=== PATIENT | female | born 1965 | race Caucasian/White ===

== ENCOUNTER 2019-09-05 11:35 | Inpatient (IN) | payer OTHER, SELFPAY ==
[2019-09-05] VITALS (7 sets, daily range): BP systolic 104–135; BP diastolic 80–95; PULSE 59–84; RESP 16–18; TEMP 36.3–36.6; O2SAT 94–100; BMI 22.2
--- NOTE | ~2019-09-05 | XR_ITS ---
XR abdomen NG/feed tube insert INDICATION: Evaluate NG tube position. TECHNIQUE: Limited KUB perform for evaluating NG tube . COMPARISON: No prior studies for comparison. FINDINGS: [NG tube tip in the stomach, side-port near the expected location of the GE junction, recom mend advancement. Visualized bowel gas pattern is unremarkable.There is residual contrast in the man al collecting systems and kidneys bilaterally. IMPRESSION: 1: [NG tube tip in the stomach, side port near the GE junction. Recommend advancement.. Reviewed, dictated and finalized at location A. ROOM TECHNICIAN IMPRESSION: 1: [NG tube tip in the stomach, side port near the GE junction. Recommend adva ncement..
--- NOTE | ~2019-09-05 | XR_ITS ---
EXAMINATION: XR abdomen NG/feed tube rechec EXAM DATE: 09/05/2019 18:46 INDICATION: Feeding tube placement. TECHNIQUE: Frontal projection(s) of the abdomen for interpretation. Comparison is made to prior exami nation from earlier same date. FINDINGS: Feeding tube has been advanced. Tip and side-port are adequate in position. Contrast withi n renal collecting system. Dilated small bowel seen on CT underappreciated on this exam. Right middle lobe granuloma. IMPRESSION: Feeding tube in position. Reviewed, dictated and finalized at location A. HASE REQUEST EDITOR IMPRESSION: Feeding tube in position.
--- NOTE | ~2019-09-05 | XR_ITS ---
EXAMINATION: XR abdomen obstructive series DATE: 09/07/2019 05:46 INDICATION: Bowel obstruction TECHNIQUE: Frontal supine and upright views of the abdomen were obtained. COMPARISON: None. FINDINGS: Nasogastric tube tip in proximal side port in the body of the stomach. Small amount of gas and small to moderate amount of stool scattered throughout the colon. Anastomotic suture line in the central pe lvis. No dilated gas-filled loops of bowel. No free intraperitoneal gas. Visualized lung bases are clear. Heart size is normal. Small amount of residual vicariously excreted contrast in the gallbladde r. IMPRESSION: 1. No free intraperitoneal gas or dilated gas-filled loops of bowel to suggest obstruction. Reviewed, dictated and finalized at location A. NESS SERVICES MANAGER
--- NOTE | ~2019-09-05 | CT_ITS ---
EXAMINATION: CT abdomen pelvis w con DATE: 09/05/2019 13:51 INDICATION: Generalized abdominal pain. TECHNIQUE: Computed tomography (CT) of the abdomen and pelvis was performed with 100 mL Omnipaque 350 intravenous contrast. Automated exposure control and iterative reconstruction technique were employe d. The dose-length product was 205.02 mGy-cm. COMPARISON: CT abdomen and pelvis 03/07/2018 FINDINGS: The visualized portions of the lung bases demonstrate a calcified right lung nodule, consis tent with old granulomatous disease. No pleural effusion. The liver, gallbladder, spleen, pancreas, a drenal glands, and kidneys are normal. There is an anastomosis in the rectum. The appendix is not vis ualized. There is dilated small bowel in left abdomen with a transition point in the left anterior ab domen. There are no pathologically enlarged lymph nodes. There is no free intraperitoneal fluid. Ther e is moderate lumbar spondylosis. IMPRESSION: 1. Small bowel obstruction. Reviewed, dictated and finalized at location B. L ENGINEER IMPRESSION: 1. Small bowel obstruction.
--- NOTE | ~2019-09-05 | XR_ITS ---
XR abdomen obstructive series 09/06/2019 08:29 Indication: Small bowel obstruction Procedure: Supine and upright views of the abdomen Comparison: 09/05/2019 Findings: NG tube in the stomach. Bowel pattern is nonobstructive. There is contrast in the gallbladd er and bladder. Surgical changes present in the pelvis. Lung bases unremarkable. Impression: 1: Nonobstructive bowel gas pattern. Reviewed, dictated and finalized at location A. IGERATOR CABINETMAKER Impression: 1: Nonobstructive bowel gas pattern.
[2019-09-05 11:51] LABS: Basophils Percent Auto 0.5 % (0.2-1.2); Eosinophils Absolute Auto 0.1 K/mm3 (0-0.3); Hematocrit 43.3 % (37.0-47.0); Hemoglobin 14.5 g/dL (12.0-15.0); Immature Granulocyte Absolute 0.01 K/mm3 (0.00-0.031); Immature Granulocyte Percent A 0.2 % (0-0.5); Lymphocytes Absolute Auto 1.28 K/mm3 (0.9-3.2); Lymphocytes Percent Auto 31.8 % (18.3-44.2); Mean Corpuscular HGB Conc 33.5 g/dl (32-36); Mean Corpuscular Hemoglobin 32.4 pg (26-34); Mean Corpuscular Volume 96.9 fl (80-100); Mean Platelet Volume 8.7 fl (7.4-10.4); Monocytes Absolute Auto 0.4 K/mm3 (0.1-0.6); Monocytes Percent Auto 9.9 % (2.6-8.5); Neutrophils Absolute Auto 2.2 K/mm3 (1.3-6.7); Neutrophils Percent Auto 55.6 % (45.5-73.1); Platelet Count Result 267 k/mm3 (150-375); Red Blood Count 4.47 M/mm3 (4.2-5.4); Red Cell Distribution Width 11.5 % (11.5-14.5)
[2019-09-05 11:58] LABS: Add Urine Microscopic? YES; Appearance Urine Clear (Clear); Bilirubin Urine Negative (Negative); Blood Urine Negative (Negative); Color Urine Yellow (Yellow); Glucose Urine UA Negative (Negative); Ketones Urine Negative (Negative); Leukocyte Esterase Ur Negative LEU/UL (Negative); Mucus Urine Rare /lpf; Nitrate Urine Negative (Negative); Protein Urine 1+ mg/dL (Negative); RBC Urine 0-2 /hpf (0-2); Specific Grav Ur 1.025 (1.001-1.035); Squamous Epithelial Cell Urine Rare /hpf (Few); Urobilinogen Urine Negative mg/dL (<2.0); WBC Urine 0-3 /hpf
[2019-09-05 12:02] LABS: Alanine Aminotransferase 22 U/L (4-35); Albumin Level 4.3 g/dL (3.5-5.1); Alkaline Phosphatase 60 U/L (38-126); Aspartate Amino Transferase 25 U/L (14-36); Bilirubin,Total 0.3 mg/dL (0.2-1.3); Blood Urea Nitrogen 12 mg/dL (7-17); Calcium 8.6 mg/dL (8.4-10.2); Carbon Dioxide 28 mmol/L (22-30); Chloride 101 mmol/L (98-107); Estimated CRCL calculation 64 ml/min; Estimated Glomerular Filt Rate > 60; Glucose 86 mg/dL (65-105); Lipase 49 U/L (23-300); Potassium 3.5 mmol/L (3.4-5.0); Sodium 137 mmol/L (137-145)
--- NOTE | 2019-09-05 12:35 | ED.ABDPAIN ---
HPI - Abdominal Pain General Chief Complaint: Abdominal Pain Stated Complaint: abd pain Time Seen by Provider: 09/05/19 12:34 Source: patient Mode of arrival: ambulatory Limitations: no limitations History of Present Illness HPI narrative: A 54 y/o female presents to the ED with c/o RUQ ABD pain since Wednesday (3 days ago). Pt also c/o diarrhea and has been having thin noodle-like stool for the past few days. Pt notes that she had surgery for diverticulitis in [address] Rodriguez at [facility]. Pt has taken Tramadol and Codeine for her pain. She reports N/V, but denies a fever. Pertinent past history: diverticulitis Onset (ago): day(s) (3) Location: RUQ Associated symptoms: nausea, vomiting and diarrhea Related Data Allergies Allergy/AdvReac Type Severity Reaction Status Date / Time Penicillins Allergy Mild Hives Verified 09/05/19 11:40 Review of Systems Review of Systems: All systems reviewed & are unremarkable except as noted in HPI and below Constitutional: Constitutional: Denies fever(s) Gastrointestinal: Gastrointestinal: Reports abdominal pain (RUQ), Reports diarrhea, Reports nausea and Reports vomiting PMFSH Past Medical History Medical History (Updated 09/05/19 @ 17:11 by Kaiden Kimble DO) Anxiety Arthritis Back pain Depression Diverticulitis Endometriosis GERD (gastroesophageal reflux disease) Hx of bipolar disorder Seizures Self-mutilation UTI (urinary tract infection) Wears glasses Surgical History Surgical History (Updated 09/05/19 @ 12:45 by oRla Suarez) H/O rotator cuff surgery History of bladder surgery History of partial colectomy Family History Family History Father Family history of coronary artery disease Social History Social History Alcohol intake: never Comments PSHx: collar bone surgery PMHx: right foot Fx with tendon and ligament damage PCP: Dr. Mendez Exam Narrative: Exam Narrative: APPEARANCE: No acute distress, nontoxic, resting in bed HEENT: Normocephalic, atraumatic, OMM RESPIRATORY: No respiratory distress, clear to auscultation bilaterally with no rhonchi wheezing or rales CARDIOVASCULAR: RRR s murmur ABDOMINAL: Soft, nondistended, diffusely tender to palpation, no rebound or MUSCULOSKELETAl: Moves all extremities. No clubbing, cyanosis or edema. NEURO: Awake and alert. Following commands, speech normal, no focal deficits SKIN:: Warm, dry. Normal Color PSYCHIATRIC: Normal affect/mood Course Course Emergency Course: Discussed with Dr. Greenwood for surgery presentation work-up. Agrees with NG tube and will consult Discussed with patient and family results of workup and diagnosis. Discussed need for admission. Patient and family understand and agree to current treatment plan Consultations Consultation #1: Discussed case with Sonja and accepted admission. Date: 09/05/19 Time: 15:53 Vital Signs Vital signs: Vital Signs Temperature 97.4 F L 09/05/19 11:36 Pulse Rate 84 09/05/19 11:36 Respiratory Rate 18 09/05/19 11:36 Blood Pressure 126/84 09/05/19 11:36 Pulse Oximetry 94 09/05/19 11:36 Temperature 97.9 F 09/05/19 16:22 Pulse Rate 59 L 09/05/19 16:22 Respiratory Rate 18 09/05/19 16:22 Blood Pressure 117/80 09/05/19 16:22 Pulse Oximetry 100 09/05/19 16:22 MDM - Abdominal Pain Lab Data Result diagrams: 09/05/19 11:42 09/05/19 11:42 Labs: Lab Results 09/05/19 09/05/19 09/05/19 Range/Units 11:42 11:42 11:47 WBC 4.0 L (4.5-10.0) K/mm3 RBC 4.47 (4.2-5.4) M/mm3 Hgb 14.5 (12.0-15.0) g/dL Hct 43.3 (37.0-47.0) % MCV 96.9 (80-100) fl MCH 32.4 (26-34) pg MCHC 33.5 (32-36) g/dl RDW 11.5 (11.5-14.5) % Plt Count 267 (150-375) k/mm3 MPV 8.7 (7.4-10.4) fl Immature Gran % (Auto) 0.2 (0-0.5) % Neut % (Auto) 55.6 (45.5-73.1) %
[2019-09-05] MEDS: ONDANSETRON INJ 4 MG/2 ML VIAL IV PUSH ×2 (13:38→21:39)
[2019-09-05] MEDS: MORPHINE SULFATE 4 MG/ML INJ IV PUSH ×4 (13:38→21:40)
[2019-09-05] MEDS: LACTATED RINGERS 1,000 ML 999 ML IV CONT (13:39)
[2019-09-05 14:47] LABS: Lactic Acid Reflex 0.7 mmol/L (0.7-2.1)
[2019-09-05] MEDS: SODIUM CHLORIDE 0.9% IV 1,000 ML 125 ML IV CONT (18:26)
--- NOTE | 2019-09-05 18:42 | ADMGEN ---
This patient, Claire Garcia, was admitted to Medical Room 249-01. Patient/family oriented to hospital policies and general routines including ID bracelet, bed and alarms, visiting hours, pain management, procedures, bathroom and other care routines, personal items, smoking policy, room service/diet, and visiting hours. Valuables list has been completed. Information on how to activate the Rapid Response Team has been discussed. Patient/Family are encouraged to report perceived risks to care and to ask questions if they do not understand what they are told or what they should do.
--- NOTE | 2019-09-05 21:58 | PM.CNGS ---
Assessment and Plan Assessment and plan (1) Small bowel obstruction: Onset Date: ~09/05/19 Code(s): K56.609 - Unspecified intestinal obstruction, unspecified as to partial versus complete obstruction Status: Acute Assessment and Plan: CT scan shows dilated fluid-filled stomach colon with several loops of left-sided small-bowel dilation with what appears to be some transitioning just the left of midline slightly below the level umbilicus. (See report). Will plan to use NG decompression and bowel rest. Will monitor with serial exams and x-rays. Have explained to the patient that at times this will resolve with conservative management and other times she will require operative intervention. She seems understand wished to proceed this manner. (2) GERD (gastroesophageal reflux disease): Onset Date: ~10/2016 Code(s): K21.9 - Gastro-esophageal reflux disease without esophagitis Status: Acute Assessment and Plan: with IV use IV proton pump inhibitor while hospitalized. (3) Depression: Code(s): F32.9 - Major depressive disorder, single episode, unspecified Status: Acute Assessment and Plan: Ask the Medicine service to provide IV substitutes for this while hospitalized. (4) Anxiety: Code(s): F41.9 - Anxiety disorder, unspecified Status: Acute Assessment and Plan: She may need IV substance medication should this become a problem while hospitalized and with NG in place. History of Present Illness Consult details Consult date: 09/05/19 Reason for consult: gallstones Requesting physician: Bal Martínez MD Narrative: A 54 y/o female presents to the ED today with c/o RUQ and mid ABD pain since Wednesday (3 days ago). Pt also c/o diarrhea and has been having thin noodle-like stool for the past few days. Pt notes that she had surgery for diverticulitis in [address] Rodriguez at [facility]. Pt has taken Tramadol and Codeine for her pain. She reports N/V, but denies a fever. patient has also taken Prilosec OTC Pepcid 20 mg both once a day office in ends of the day. She also has with her both Zofran 4 mg tablets and right gland 5 mg tablets which she has taken over the last few days periodically for nausea. Pertinent past history: diverticulitis And surgical intervention for recurrent diverticulitis done 2017. She states that was sigmoid colon that was resected. This was done at [facility] in [place]. Patient also states that she had undergo an urgent surgery at age 23 for perforation of the bowel which occurred after a pelvic laparoscopy. She apparently had multiple segments of small bowel resected at that time period both of her scars from previous surgery RN in infraumbilical midline each coming around opposite sides of the umbilicus one on the left for on the right. Other than the previous laparoscopy these were the only surgery she has had her abdomen. She is not sure whether not the took out her appendix during the time that they did the small-bowel resections at age 23. Patient presented to the emergency room and workup in the emergency room showed a white count of about 4,000. She also had a CT scan of the abdomen pelvis which showed that she had appeared to be transition zone near the left mid abdomen for a small-bowel obstruction. Her stomach was significantly dilated with fluid on CT scan. She has also had a NGT placed in the ED ER and she filled 1 full canister the suction from her NG while in the ER. She is being admitted by the hospitalist because of herl medical comorbidities including history of seizures. She will be NPO and on bowel rest and will be encouraged to ambulate to help this small-bowel obstruction released spontaneously. Review of Systems Constitutional: Constitutional: Reports no additional constitutional complaints Cardiovascular: Cardiovascular: Reports chest pain ( Mainly in the epigastrium.) Gastrointestin
[2019-09-05] MEDS: PHENOL/SOD PHENO SPRAY CHERRY (*BKC) 1 SPRAY MUCOUS MEM (22:00)
[2019-09-05] MEDS: LORAZEPAM INJ 2 MG/ML VIAL 0.5 MG IV PUSH (22:07)
[2019-09-05] MEDS: FAMOTIDINE 20 MG/2 ML VIAL IV PUSH (22:07)
[2019-09-06] MEDS: MORPHINE SULFATE 4 MG/ML INJ IV PUSH ×6 (01:03→19:57)
[2019-09-06] MEDS: SODIUM CHLORIDE 0.9% IV 1,000 ML 125 ML IV CONT ×3 (01:05→17:23)
[2019-09-06] MEDS: PHENOL/SOD PHENO SPRAY CHERRY (*BKC) 1 SPRAY MUCOUS MEM ×3 (05:06→20:01)
[2019-09-06] MEDS: ONDANSETRON INJ 4 MG/2 ML VIAL IV PUSH ×2 (05:12→19:56)
[2019-09-06 06:00] VITALS: BP 105/71; PULSE 62; RESP 16; TEMP 36.6; O2SAT 98
[2019-09-06 06:36] LABS: Basophils Percent Auto 0.2 % (0.2-1.2); Eosinophils Absolute Auto 0.1 K/mm3 (0-0.3); Eosinophils Percent Auto 2.4 % (0-4.4); Hematocrit 36.3 % (37.0-47.0); Hemoglobin 12.1 g/dL (12.0-15.0); Lymphocytes Absolute Auto 1.75 K/mm3 (0.9-3.2); Lymphocytes Percent Auto 42.2 % (18.3-44.2); Mean Corpuscular HGB Conc 33.3 g/dl (32-36); Mean Corpuscular Hemoglobin 32.6 pg (26-34); Mean Corpuscular Volume 97.8 fl (80-100); Mean Platelet Volume 9.1 fl (7.4-10.4); Monocytes Absolute Auto 0.4 K/mm3 (0.1-0.6); Monocytes Percent Auto 9.4 % (2.6-8.5); Neutrophils Absolute Auto 1.9 K/mm3 (1.3-6.7); Neutrophils Percent Auto 45.8 % (45.5-73.1); Platelet Count Result 213 k/mm3 (150-375); Red Blood Count 3.71 M/mm3 (4.2-5.4); Red Cell Distribution Width 11.6 % (11.5-14.5); White Blood Count 4.2 K/mm3 (4.5-10.0)
[2019-09-06 06:59] LABS: Blood Urea Nitrogen 7 mg/dL (7-17); Carbon Dioxide 26 mmol/L (22-30); Chloride 107 mmol/L (98-107); Estimated CRCL calculation 55 ml/min; Estimated Glomerular Filt Rate > 60; Glucose 83 mg/dL (65-105); Potassium 3.2 mmol/L (3.4-5.0); Sodium 139 mmol/L (137-145)
[2019-09-06] MEDS: LORAZEPAM INJ 2 MG/ML VIAL 0.5 MG IV PUSH ×2 (07:55→21:55)
--- NOTE | 2019-09-06 08:22 | PM.IMHP ---
H&P: HPI History of Present Illness Chief complaint: small bowel obstruction Narrative: Claire Garcia is a 54 year old female with hx of abd surgeries here for abd pain and found to have partial SBO. Patient has hx of pSBO with last episode in February 2018. She states she normally take Mg citrate with benefit. She also takes miralax prn and Reglan prn when symptomatic. On 09/02/19, patietn began to have abd cramping with diarrhea, nausea and vomiting with dry heaves. Matheson diaphoretic and with chills with the vomiting but no fevers. No melana or hematochezia. Was able to tolerate liquid diet. Stools were described as thin. Her last BM was on the day of admission just prior to coming to ER. She was taking codeine which she had left over for pain. She also takes tramadol but chronically for her arthritis. She did not try the Mag citrate. Symptoms persisted and she presented to ER for evaluation and was found to have SBO by CT. NGT placed and patient admitted for further care. Since admission, no further BMs but passing flatus and up walking in the halls. Abd pain better. Review of Systems Review of Systems: Narrative: Complains of sore throat due to the tube. She has also having headache. She does also 'worry a lot'about requiring a colostomy at some point. She also complains of weight loss about 6# since the beginning her symptoms. She complains of lymph node enlargement in the left side of her neck. They are nontender. They appear to come and go. She denies any breast lumps or bumps or nipple discharge. No recent mammogram. All systems reviewed & are unremarkable except as noted in HPI and below PMFSH Past Medical History Medical History (Updated 09/06/19 @ 08:46 by Dylan Odom MD) Anxiety With panic attacks Arthritis Back pain Depression on treatment with Seroquel. Diverticulitis Endometriosis GERD (gastroesophageal reflux disease) (~10/2016) Treated with PPI and H2 blockers Hx of bipolar disorder Related to the time she was undergoing a divorce Seizures Matheson to be alcohol withdrawal related Self-mutilation Related to the time she was going through divorce. UTI (urinary tract infection) Wears glasses Surgical History Surgical History (Updated 09/06/19 @ 08:38 by Dylan Odom MD) H/O rotator cuff surgery Right History of bladder surgery 2009 History of partial colectomy Sigmoid colon in 2017 S/P laparoscopic procedure For endometriosis in the 1980s complicated by bowel perforation requiring surgical repair S/P tendon repair History of left tendon repair after foot fracture Family History Family History (Updated 09/05/19 @ 18:47 by Sammy Dela Cruz RN) Father Family history of coronary artery disease Mother Lung cancer Bladder cancer Sibling Hypertension Social History Social History (Updated 09/06/19 @ 08:39 by Dylan Odom MD) Social History: History of cocaine use. Last used cocaine about 2 years ago. No history of IV drug use. She declines HIV and hepatitis testing. She drinks 6 alcoholic drinks per week. She smokes marijuana regularly. She lives alone but her boyfriend stays with her frequently. She is lifelong nonsmoker. She has 2 sons. She is full code. Her son Chun would be the individual making medical decisions for her if she is unable. Smoking status: Never smoker Alcohol intake: current Drinks per week: 3 Substance use: current Substance use type: marijuana Gender identity (if verbalized by the patient): Female Spiritual care concerns: Yes (L[employer]-Day) Agree to blood products: Yes Meds Home Medications and Allergies Home Medications Medication Instructions Recorded Confirmed Type alprazolam [Xanax] 1 mg PO TID PRN 09/05/19 09/05/19 History esomeprazole magnesium 40 mg PO DAILY 09/05/19 09/05/19 History famotidine 20 mg PO DAILY PRN 09/05/19 09/05/19 History metoclopramide HCl [Reglan] 10 mg PO Q6H PRN 09/05/19 1
[2019-09-06] MEDS: FAMOTIDINE 20 MG/2 ML VIAL IV PUSH ×2 (11:44→19:57)
[2019-09-06 14:00] VITALS: BP 105/69; PULSE 69; RESP 16; TEMP 37.1; O2SAT 98
--- NOTE | 2019-09-06 14:24 | PM.PNGS ---
Progress Note: A&P Assessment and Plan (1) Small bowel obstruction: Onset Date: ~09/05/19 Code(s): K56.609 - Unspecified intestinal obstruction, unspecified as to partial versus complete obstruction Status: Acute Assessment and Plan: Patient seems to be clinically improving. Abdominal x-ray this morning shows nonobstructive bowel gas pattern. Will initiate an NG tube clamping trial and give a dose of milk of magnesia through the NG prior to clamping. Will repeat abdominal films tomorrow. Encouraged walking the halls while clamped if tolerated. (2) GERD (gastroesophageal reflux disease): Onset Date: ~10/2016 Code(s): K21.9 - Gastro-esophageal reflux disease without esophagitis Status: Acute (3) Depression: Code(s): F32.9 - Major depressive disorder, single episode, unspecified Status: Acute Assessment and Plan: (4) Anxiety: Code(s): F41.9 - Anxiety disorder, unspecified Status: Acute Additional Plan Discussed plan of care with Dr. Greenwood. Subjective Subjective Date/Time Seen: 09/06/19 14:00 Patient reports: no new complaints, feels better, pain is less, flatus and no bowel movement Interval history: Patient seen and examined. Reports lots of flatus today. Only 1 episode of abdominal pain earlier today but no abdominal pain at this time. She reports being clamped for a short period of time to walk in the halls and did become slightly nauseous, but no vomiting. No BM. Denies feeling bloated. No other complaints at this time. Review of Systems Review of Systems: All systems reviewed & are unremarkable except as noted in HPI and below Exam Const: General: no acute distress, alert and awake Orientation/consciousness: oriented x3 GI: Inspection: normal to inspection and non-distended GI Palp: Yes soft, Yes tender (Left-sided tender), No guarding and No rebound tenderness Auscultation: normal bowel sounds Rectal Exam: deferred Skin: General skin exam: normal color Neuro: General: no focal motor deficits Speech: normal speech Extrem: General: normal to inspection and no calf tenderness Psych: Appearance: grossly normal Mental Status: mental status grossly normal Attitude: cooperative Objective Data Vital Signs Vital Signs: Vital Signs - 24 hr 09/05/19 15:24 09/05/19 16:22 09/05/19 17:50 Temperature 36.6 C Pulse Rate 80 59 L 63 Respiratory Rate 18 18 18 Blood Pressure 135/95 H 117/80 118/83 Pulse Oximetry 95 100 97 09/05/19 21:54 09/05/19 22:00 09/06/19 06:00 Temperature 36.4 C 36.6 C Pulse Rate 63 60 62 Respiratory Rate 18 16 16 Blood Pressure 104/81 105/71 Pulse Oximetry 97 98 98 Intake/Output Intake/Output: Intake & Output 09/03/19 09/04/19 09/05/19 09/06/19 23:59 23:59 23:59 23:59 Intake Total 1000 2000 Output Total 1010 Balance 1000 990 Meds/Results Medications: Active Medications Generic Name Dose Route Start Last Admin Trade Name Freq PRN Reason Stop Dose Admin Benzocaine 1 lozenge 09/05/19 22:49 Chloraseptic Lozenge PO PRN PRN Sore Throat Famotidine 20 mg 09/05/19 21:00 09/06/19 11:44 Pepcid Iv IV PUSH 20 mg Q12HR BREE Administration Sodium Chloride 1,000 mls @ 125 mls/hr 09/05/19 15:55 09/06/19 09:07 Normal Saline Iv IV CONT 125 mls/hr .Q8H BREE Administration Lorazepam 0.5 mg 09/05/19 21:40 09/06/19 07:55 Ativan IV PUSH 0.5 mg Q6H PRN Administration Anxiety Morphine Sulfate 4 mg 09/05/19 15:53 09/06/19 13:02 Morphine Sulfate Inj IV PUSH 4 mg Q2H PRN Administration Pain Rated 7-10 Ondansetron HCl 4 mg 09/05/19 15:53 09/06/19 05:12 Zofran Inj IV PUSH 4 mg Q4H PRN Administration Nausea Phenol 1 spray 09/05/19 22:10 09/06/19 11:44 Chloraseptic [place] MUCOUS MEM 1 spray PRN PRN Administration Sore Throat Radiology Results: ITS Impressions Abdomen/Pelvis CT
[2019-09-06] MEDS: MAGNESIUM HYDROXIDE SUSP 30 ML UDC PO (15:28)
--- NOTE | 2019-09-06 15:32 | PC.NURSE ---
Patient is currently on a clamp schedule ordered by the ARTS MANAGER, patient drank about 240 mls of a red slushy brought in by family
[2019-09-06] MEDS: BENZOCAINE/MENTHOL (*BKC) 18 EA LOZENGE 1 LOZENGE PO (20:01)
[2019-09-06 20:10] VITALS: PULSE 69; RESP 16; O2SAT 98
[2019-09-06 21:42] VITALS: BP 114/69; PULSE 64; RESP 16; TEMP 37.1; O2SAT 97
[2019-09-07] MEDS: ONDANSETRON INJ 4 MG/2 ML VIAL IV PUSH ×3 (00:07→10:07)
[2019-09-07] MEDS: MORPHINE SULFATE 4 MG/ML INJ IV PUSH ×3 (00:07→08:04)
[2019-09-07] MEDS: SODIUM CHLORIDE 0.9% IV 1,000 ML 125 ML IV CONT ×2 (00:08→08:00)
[2019-09-07] MEDS: PHENOL/SOD PHENO SPRAY CHERRY (*BKC) 1 SPRAY MUCOUS MEM ×2 (00:08→05:28)
[2019-09-07 05:52] VITALS: BP 98/75; PULSE 57; RESP 18; TEMP 36.8; O2SAT 98
[2019-09-07 05:57] LABS: Basophils Percent Auto 0.3 % (0.2-1.2); Eosinophils Absolute Auto 0.1 K/mm3 (0-0.3); Eosinophils Percent Auto 2.2 % (0-4.4); Hemoglobin 10.6 g/dL (12.0-15.0); Immature Granulocyte Absolute 0.02 K/mm3 (0.00-0.031); Immature Granulocyte Percent A 0.5 % (0-0.5); Lymphocytes Absolute Auto 1.25 K/mm3 (0.9-3.2); Lymphocytes Percent Auto 34.2 % (18.3-44.2); Mean Corpuscular HGB Conc 33.1 g/dl (32-36); Mean Corpuscular Hemoglobin 32.5 pg (26-34); Mean Corpuscular Volume 98.2 fl (80-100); Mean Platelet Volume 8.8 fl (7.4-10.4); Monocytes Absolute Auto 0.3 K/mm3 (0.1-0.6); Monocytes Percent Auto 7.7 % (2.6-8.5); Neutrophils Percent Auto 55.1 % (45.5-73.1); Platelet Count Result 144 k/mm3 (150-375); Red Blood Count 3.26 M/mm3 (4.2-5.4); Red Cell Distribution Width 11.5 % (11.5-14.5); White Blood Count 3.7 K/mm3 (4.5-10.0)
[2019-09-07 06:06] LABS: Blood Urea Nitrogen 2 mg/dL (7-17); Calcium 8.1 mg/dL (8.4-10.2); Carbon Dioxide 28 mmol/L (22-30); Chloride 104 mmol/L (98-107); Estimated CRCL calculation 72 ml/min; Estimated Glomerular Filt Rate > 60; Glucose 87 mg/dL (65-105); Potassium 3.4 mmol/L (3.4-5.0); Sodium 137 mmol/L (137-145)
[2019-09-07 07:10] LABS: Folic Acid 14.5 ng/mL (2.76->20)
[2019-09-07] MEDS: CYANOCOBALAMIN INJ 1,000 MCG/ML VIAL 1000 MCG IM (08:05)
[2019-09-07] MEDS: FAMOTIDINE 20 MG/2 ML VIAL IV PUSH (08:12)
[2019-09-07] MEDS: KCL 20 MEQ/SW 100 ML 100 ML 50 MEQ IVPB (09:56)
[2019-09-07] MEDS: LORAZEPAM INJ 2 MG/ML VIAL 0.5 MG IV PUSH (10:04)
--- NOTE | 2019-09-07 10:25 | PM.PNGS ---
Progress Note: A&P Assessment and Plan (1) Small bowel obstruction: Onset Date: ~09/05/19 Code(s): K56.609 - Unspecified intestinal obstruction, unspecified as to partial versus complete obstruction Status: Acute Assessment and Plan: Patient continues to clinically improve. Abdominal x-ray this morning shows nonobstructive bowel gas pattern. Will remove NG tube today and start clear liquids. Encouraged patient to walk the halls. (2) GERD (gastroesophageal reflux disease): Onset Date: ~10/2016 Code(s): K21.9 - Gastro-esophageal reflux disease without esophagitis Status: Acute (3) Depression: Code(s): F32.9 - Major depressive disorder, single episode, unspecified Status: Acute Assessment and Plan: (4) Anxiety: Code(s): F41.9 - Anxiety disorder, unspecified Status: Acute Additional Plan Discussed plan of care with Dr. Greenwood. Subjective Subjective Date/Time Seen: 09/07/19 10:25 Patient reports: no new complaints, feels better, flatus and bowel movement Interval history: Patient seen and examined. Reports feeling better today. Her primary complaint is feeling like she is having a lot of reflux. She also reports some soreness in her upper abdomen she believes from the vomiting and discomfort in her throat from the NG tube. Feels less bloated. No nausea. Reports two bowel movements overnight. No other complaints at this time. Review of Systems Review of Systems: All systems reviewed & are unremarkable except as noted in HPI and below Exam Const: General: cooperative, no acute distress, alert and awake GI: Inspection: normal to inspection and non-distended GI Palp: Yes soft, Yes tender (left-sided tenderness improved today) and No guarding Auscultation: normal bowel sounds Skin: General skin exam: normal color and no rashes or lesions noted Neuro: General: oriented x3 and no focal motor deficits Extrem: General: full ROM and no calf tenderness Psych: Mental Status: mental status grossly normal Attitude: cooperative Objective Data Vital Signs Vital Signs: Vital Signs - 24 hr 09/06/19 14:00 09/06/19 20:10 09/06/19 21:42 Temperature 37.1 C 37.1 C Pulse Rate 69 69 64 Respiratory Rate 16 16 16 Blood Pressure 105/69 114/69 Pulse Oximetry 98 98 97 09/07/19 05:52 Temperature 36.8 C Pulse Rate 57 L Respiratory Rate 18 Blood Pressure 98/75 L Pulse Oximetry 98 Intake/Output Intake/Output: Intake & Output 09/04/19 09/05/19 09/06/19 09/07/19 23:59 23:59 23:59 23:59 Intake Total 1000 3760 2000 Output Total 2210 500 Balance 1000 1550 1500 Meds/Results Medications: Active Medications Generic Name Dose Route Start Last Admin Trade Name Freq PRN Reason Stop Dose Admin Benzocaine 1 lozenge 09/05/19 22:49 09/06/19 20:01 Chloraseptic Lozenge PO 1 lozenge PRN PRN Administration Sore Throat Cyanocobalamin 1,000 mcg 09/07/19 09:00 09/07/19 08:05 Vitamin B-12 Inj IM 1,000 mcg Th@0900 BREE Administration Famotidine 20 mg 09/05/19 21:00 09/07/19 08:12 Pepcid Iv IV PUSH 20 mg Q12HR BREE Administration Sodium Chloride 1,000 mls @ 125 mls/hr 09/05/19 15:55 09/07/19 08:00 Normal Saline Iv IV CONT 125 mls/hr .Q8H BREE Administration Lorazepam 0.5 mg 09/05/19 21:40 09/07/19 10:04 Ativan IV PUSH 0.5 mg Q6H PRN Administration Anxiety Morphine Sulfate 4 mg 09/05/19 15:53 09/07/19 08:04 Morphine Sulfate Inj IV PUSH 4 mg Q2H PRN Administration Pain Rated 7-10 Ondansetron HCl 4 mg 09/05/19 15:53 09/07/19 10:07 Zofran Inj IV PUSH 4 mg Q4H PRN Administration Nausea Phenol 1 spray 09/05/19 22:10 09/07/19 05:28 Chloraseptic [place] MUCOUS MEM 1 spray PRN PRN Administration Sore Throat Radiology Results: ITS Impressions Abdomen/Pelvis CT 09/05/19 13:57 IMPRESSION: 1. Small bowel obstruction. Abdomen X-Ra
--- NOTE | 2019-09-07 13:09 | PM.IMPN ---
Progress Note: A&P Assessment and Plan (1) Small bowel obstruction: Onset Date: ~09/05/19 Code(s): K56.609 - Unspecified intestinal obstruction, unspecified as to partial versus complete obstruction Status: Acute (2) GERD (gastroesophageal reflux disease): Onset Date: ~10/2016 Code(s): K21.9 - Gastro-esophageal reflux disease without esophagitis Status: Acute (3) Anxiety: Code(s): F41.9 - Anxiety disorder, unspecified Status: Acute (4) Leukopenia: Code(s): D72.819 - Decreased white blood cell count, unspecified Status: Acute (5) Hypokalemia: Code(s): E87.6 - Hypokalemia Status: Acute Additional Plan 09/06/19 -- Patient admitted to [address] [place] [address]. General surgery is been consulted. Patient now having flatus and exam is relatively benign. Repeat KUB is ordered for today with results pending. Further determination once his results are known. Continue to encourage the patient to be up walking in the halls. Home medications on hold. Ativan available as needed for anxiety. Will continue the Pepcid for her acid reflux symptoms. The potassium has already been replaced. Will repeat potassium level in the morning with magnesium level. Continue IV fluids. Recommend patient monitor the left side lymph nodes at this time since they are small and mobile. All questions were answered. SCDs for DVT prophylaxis. Appreciate general surgery input. 09/07/19 -- Sx improving. She feels better overall. Diet to be advanced. Home once able to tolerate diet. Resume home meds. Encourage ambulation. Subjective Interval history: 54yo female here for pSBO. NGT out this morning. Nausea before NGT out but better now. No vomiting. BM x2. Tolerating popsicles and ice chips. Exam Narrative: Exam Narrative: Gen - NARD lying semi-recumbent in bed HEENT - NC/AT, mmm Neck -supple. [place] posterior cervical adenopathy that are small and mobile. Chest - CTA bilaterally, nml RR. Normal respiratory rate CV - RRR S1/S2. Abd - Soft, NT/ND, Positive BS. Ext - No pedal edema Psych - Nml mood and affect Skin - Warm and dry Objective Data Vital Signs Vital Signs: Vital Signs - 24 hr 09/06/19 14:00 09/06/19 20:10 09/06/19 21:42 Temperature 98.7 F 98.8 F Pulse Rate 69 69 64 Respiratory Rate 16 16 16 Blood Pressure 105/69 114/69 Pulse Oximetry 98 98 97 09/07/19 05:52 Temperature 98.2 F Pulse Rate 57 L Respiratory Rate 18 Blood Pressure 98/75 L Pulse Oximetry 98 Intake/Output Intake/Output: Intake & Output 09/04/19 09/05/19 09/06/19 09/07/19 23:59 23:59 23:59 23:59 Intake Total 1000 3760 2000 Output Total 2210 500 Balance 1000 1550 1500 Meds/Results Medications: Active Medications Generic Name Dose Route Start Last Admin Trade Name Freq PRN Reason Stop Dose Admin Acetaminophen 500 mg 09/07/19 11:10 Tylenol Tablet PO Q6H PRN Mild Pain (1-3) or Fever Hydrocodone Bitart/Acetaminophen 1 tab 09/07/19 11:10 [place] 5-325 Mg PO Q6H PRN Pain Rated 4-6 Hydrocodone Bitart/Acetaminophen 1 tab 09/07/19 11:10 [place] 7.5-325 Mg PO Q6H PRN Pain Rated 7-10 Benzocaine 1 lozenge 09/05/19 22:49 09/06/19 20:01 Chloraseptic Lozenge PO 1 lozenge PRN PRN Administration Sore Throat Cyanocobalamin 1,000 mcg 09/07/19 09:00 09/07/19 08:05 Vitamin B-12 Inj IM 1,000 mcg Th@0900 BREE Administration Famotidine 20 mg 09/05/19 21:00 09/07/19 08:12 Pepcid Iv IV PUSH 20 mg Q12HR BREE Administration Sodium Chloride 1,000 mls @ 90 mls/hr 09/05/19 15:55 09/07/19 11:55 Normal Saline Iv IV CONT 90 mls/hr .Q11H7M BREE Infusion Lorazepam 0.5 mg 09/05/19 21:40 09/07/19 10:04 Ativan IV PUSH 0.5 mg Q6H PRN Administration Anxiety Ondansetron HCl 4 mg 09/05/19 15:53 09/07/19 10:07 Zofran Inj IV PUSH 4 mg Q4H PRN Administration Nausea Phenol 1
[2019-09-07 14:00] VITALS: BP 111/74; PULSE 60; RESP 16; TEMP 36.6; O2SAT 100
[2019-09-07] MEDS: ALPRAZOLAM 0.5 MG TABLET 1 MG PO ×2 (17:48→21:57)
[2019-09-07] MEDS: SODIUM CHLORIDE 0.9% IV 1,000 ML 90 ML IV CONT (17:58)
[2019-09-07 21:10] VITALS: BP 100/63; PULSE 61; RESP 16; TEMP 36.3; O2SAT 100
[2019-09-07] MEDS: QUEtiapine FUMARATE 25 MG TABLET 50 MG PO (21:54)
[2019-09-07] MEDS: ACETAMINOPHEN 500 MG TABLET PO (21:57)
[2019-09-08 05:57] VITALS: BP 93/61; PULSE 62; RESP 12; TEMP 36.3; O2SAT 100
[2019-09-08 06:20] LABS: Hematocrit 33.7 % (37.0-47.0); Hemoglobin 11.2 g/dL (12.0-15.0); Mean Corpuscular HGB Conc 33.2 g/dl (32-36); Mean Corpuscular Hemoglobin 32.2 pg (26-34); Mean Corpuscular Volume 96.8 fl (80-100); Mean Platelet Volume 9.3 fl (7.4-10.4); Platelet Count Result 180 k/mm3 (150-375); Red Blood Count 3.48 M/mm3 (4.2-5.4); Red Cell Distribution Width 11.4 % (11.5-14.5); White Blood Count 3.5 K/mm3 (4.5-10.0)
[2019-09-08 06:33] LABS: Calcium 7.9 mg/dL (8.4-10.2); Carbon Dioxide 28 mmol/L (22-30); Chloride 106 mmol/L (98-107); Estimated CRCL calculation 63 ml/min; Estimated Glomerular Filt Rate > 60; Glucose 86 mg/dL (65-105); Potassium 3.3 mmol/L (3.4-5.0); Sodium 139 mmol/L (137-145)
[2019-09-08 07:50] LABS: Blood Urea Nitrogen < 2 mg/dL (7-17)
--- NOTE | 2019-09-08 07:57 | PM.PNGS ---
Progress Note: A&P Assessment and Plan (1) Small bowel obstruction: Onset Date: ~09/05/19 Code(s): K56.609 - Unspecified intestinal obstruction, unspecified as to partial versus complete obstruction Status: Acute Assessment and Plan: Patient clinically improving. Advanced to full liquids today. Slowly advance to soft diet. Encouraged ambulation in the halls Patient may benefit from bowel stimulation going home (2) GERD (gastroesophageal reflux disease): Onset Date: ~10/2016 Code(s): K21.9 - Gastro-esophageal reflux disease without esophagitis Status: Acute (3) Depression: Code(s): F32.9 - Major depressive disorder, single episode, unspecified Status: Acute Assessment and Plan: (4) Anxiety: Code(s): F41.9 - Anxiety disorder, unspecified Status: Acute Subjective Subjective Date/Time Seen: 09/08/19 07:57 Patient reports: feels better, tolerating liquids well, flatus and bowel movement Interval history: The patient seen and examined. Reports having one episode of nausea yesterday around 5 pm that resolved. She did also have a bowel movement last night. Denies any abdominal pain, nausea, vomiting, or bloating this morning. No other complaints. Review of Systems Review of Systems: All systems reviewed & are unremarkable except as noted in HPI and below Exam Const: General: no acute distress and other (sleeping when entering the room and tired this morning) GI: Inspection: normal to inspection and non-distended GI Palp: Yes soft, Yes tender (LLQ still but improved), No guarding and No rebound tenderness Auscultation: normal bowel sounds Neuro: General: no focal motor deficits Psych: Attitude: cooperative Objective Data Vital Signs Vital Signs: Vital Signs - 24 hr 09/07/19 14:00 09/07/19 21:10 09/08/19 05:57 Temperature 36.6 C 36.3 C L 36.3 C L Pulse Rate 60 61 62 Respiratory Rate 16 16 12 Blood Pressure 111/74 100/63 93/61 L Pulse Oximetry 100 100 100 Intake/Output Intake/Output: Intake & Output 09/05/19 09/06/19 09/07/19 09/08/19 23:59 23:59 23:59 23:59 Intake Total 1000 3760 5060 900 Output Total 2210 2700 Balance 1000 1550 2360 900 Meds/Results Medications: Active Medications Generic Name Dose Route Start Last Admin Trade Name Freq PRN Reason Stop Dose Admin Acetaminophen 500 mg 09/07/19 11:10 09/07/19 21:57 Tylenol Tablet PO 500 mg Q6H PRN Administration Mild Pain (1-3) or Fever Hydrocodone Bitart/Acetaminophen 1 tab 09/07/19 11:10 [place] 5-325 Mg PO Q6H PRN Pain Rated 4-6 Hydrocodone Bitart/Acetaminophen 1 tab 09/07/19 11:10 09/07/19 17:59 [place] 7.5-325 Mg PO 1 tab Q6H PRN Administration Pain Rated 7-10 Alprazolam 1 mg 09/07/19 13:16 09/07/19 21:57 Xanax PO 1 mg TID PRN Administration Anxiety Benzocaine 1 lozenge 09/05/19 22:49 09/06/19 20:01 Chloraseptic Lozenge PO 1 lozenge PRN PRN Administration Sore Throat Cyanocobalamin 1,000 mcg 09/07/19 09:00 09/07/19 08:05 Vitamin B-12 Inj IM 1,000 mcg Th@0900 BREE Administration Famotidine 20 mg 09/07/19 13:16 Pepcid PO DAILY PRN Acid Reflux Potassium Chloride 500 mls @ 125 mls/hr 09/08/19 07:30 Kcl 40 Meq/D5w 500 Ml Peripheral IVPB 09/08/19 11:29 ONCE ONE Metoclopramide HCl 10 mg 09/07/19 14:09 Reglan PO Q6H PRN For nausea if Zofran unhelpful Ondansetron HCl 4 mg 09/07/19 13:16 Zofran Odt PO PRN PRN Nausea Pantoprazole Sodium 40 mg 09/08/19 09:00 Protonix PO QAM BREE Phenol 1 spray 09/05/19 22:10 09/07/19 05:28 Chloraseptic [place] MUCOUS MEM 1 spray PRN PRN Administration Sore Throat Quetiapine Fumarate 50 mg 09/07/19 21:00 09/07/19 21:54 Seroquel PO 50 mg HS BREE Administration Radiology Results: ITS Impressions Abdomen/Pelvis CT 09/05/19 13:57 I
[2019-09-08] MEDS: POTASSIUM CHLORIDE 20 MEQ TABLET 40 MEQ PO (08:59)
[2019-09-08] MEDS: PANTOPRAZOLE 40 MG TABLET PO (09:00)
[2019-09-08] MEDS: ALPRAZOLAM 0.5 MG TABLET 1 MG PO ×2 (09:09→20:48)
--- NOTE | 2019-09-08 11:07 | PM.IMPN ---
Progress Note: A&P Assessment and Plan (1) Small bowel obstruction: Onset Date: ~09/05/19 Code(s): K56.609 - Unspecified intestinal obstruction, unspecified as to partial versus complete obstruction Status: Acute (2) GERD (gastroesophageal reflux disease): Onset Date: ~10/2016 Code(s): K21.9 - Gastro-esophageal reflux disease without esophagitis Status: Acute (3) Anxiety: Code(s): F41.9 - Anxiety disorder, unspecified Status: Acute (4) Leukopenia: Code(s): D72.819 - Decreased white blood cell count, unspecified Status: Acute (5) Hypokalemia: Code(s): E87.6 - Hypokalemia Status: Acute Additional Plan 09/06/19 -- Patient admitted to [address] [place] [address]. General surgery is been consulted. Patient now having flatus and exam is relatively benign. Repeat KUB is ordered for today with results pending. Further determination once his results are known. Continue to encourage the patient to be up walking in the halls. Home medications on hold. Ativan available as needed for anxiety. Will continue the Pepcid for her acid reflux symptoms. The potassium has already been replaced. Will repeat potassium level in the morning with magnesium level. Continue IV fluids. Recommend patient monitor the left side lymph nodes at this time since they are small and mobile. All questions were answered. SCDs for DVT prophylaxis. Appreciate general surgery input. 09/07/19 -- Sx improving. She feels better overall. Diet to be advanced. Home once able to tolerate diet. Resume home meds. Encourage ambulation. B12 was low so replacement started. May be the etiology of her low WBC. 09/08/19 -- Hgb better today. Potassium still low and replaced again. Mg 2.0 yesterday. Diet advanced to full liquid. Dulcolax supp x 1 and add Miralax. Encouraged ambulation. Subjective Interval history: 54yo female here for pSBO. No CP or SOB. Slight nausea this morning. No vomiting. Having increasing abd pain mostly LLQ. No BM yesterday or today. Ambulating in halls. Exam Narrative: Exam Narrative: Gen - NARD sitting up in bed Chest - CTA bilat, nml RR CV - RRR S1/S2. Abd - soft, mildly protuberant but not tympanitic. No guarding and minimal nonfocal tenderness Ext - No pedal edema Psych - Nml mood and affect Skin - Warm and dry Objective Data Vital Signs Vital Signs: Vital Signs - 24 hr 09/07/19 14:00 09/07/19 21:10 09/08/19 05:57 Temperature 97.9 F 97.4 F L 97.3 F L Pulse Rate 60 61 62 Respiratory Rate 16 16 12 Blood Pressure 111/74 100/63 93/61 L Pulse Oximetry 100 100 100 Intake/Output Intake/Output: Intake & Output 09/05/19 09/06/19 09/07/19 09/08/19 23:59 23:59 23:59 23:59 Intake Total 1000 3760 5060 900 Output Total 2210 2700 Balance 1000 1550 2360 900 Meds/Results Medications: Active Medications Generic Name Dose Route Start Last Admin Trade Name Freq PRN Reason Stop Dose Admin Acetaminophen 500 mg 09/07/19 11:10 09/07/19 21:57 Tylenol Tablet PO 500 mg Q6H PRN Administration Mild Pain (1-3) or Fever Hydrocodone Bitart/Acetaminophen 1 tab 09/07/19 11:10 [place] 5-325 Mg PO Q6H PRN Pain Rated 4-6 Hydrocodone Bitart/Acetaminophen 1 tab 09/07/19 11:10 09/08/19 09:09 [place] 7.5-325 Mg PO 1 tab Q6H PRN Administration Pain Rated 7-10 Alprazolam 1 mg 09/07/19 13:16 09/08/19 09:09 Xanax PO 1 mg TID PRN Administration Anxiety Benzocaine 1 lozenge 09/05/19 22:49 09/06/19 20:01 Chloraseptic Lozenge PO 1 lozenge PRN PRN Administration Sore Throat Cyanocobalamin 1,000 mcg 09/07/19 09:00 09/07/19 08:05 Vitamin B-12 Inj IM 1,000 mcg Th@0900 BREE Administration Famotidine 20 mg 09/07/19 13:16 Pepcid PO DAILY PRN Acid Reflux Metoclopramide HCl 10 mg 09/07/19 14:09 Reglan PO Q6H PRN For nausea if Zofran unhelpful Ondansetron HCl
[2019-09-08] MEDS: BISACODYL 10 MG SUPPOSITORY RECTAL (11:51)
[2019-09-08] MEDS: POLYETHYLENE GLYCOL 3350 17 GM POWD.PACK PO (11:51)
[2019-09-08] MEDS: FAMOTIDINE 20 MG TABLET PO (13:54)
[2019-09-08 14:00] VITALS: BP 110/69; PULSE 68; RESP 20; TEMP 36.4; O2SAT 100
[2019-09-08] MEDS: QUEtiapine FUMARATE 25 MG TABLET 50 MG PO (20:47)
[2019-09-08 22:00] VITALS: BP 122/58; PULSE 90; RESP 24; TEMP 36.3; O2SAT 97
[2019-09-09 05:06] VITALS: BP 108/62; PULSE 53; RESP 12; TEMP 36.1; O2SAT 95
[2019-09-09 05:48] LABS: Blood Urea Nitrogen 4 mg/dL (7-17); Calcium 7.8 mg/dL (8.4-10.2); Carbon Dioxide 29 mmol/L (22-30); Chloride 104 mmol/L (98-107); Estimated CRCL calculation 72 ml/min; Estimated Glomerular Filt Rate > 60; Glucose 97 mg/dL (65-105); Magnesium 2.1 mg/dL (1.6-2.3); Potassium 3.4 mmol/L (3.4-5.0); Sodium 139 mmol/L (137-145)
[2019-09-09] MEDS: POTASSIUM CHLORIDE 20 MEQ TABLET 40 MEQ PO (07:33)
[2019-09-09] MEDS: ONDANSETRON HCL ODT 4 MG TABLET PO (07:33)
[2019-09-09] MEDS: POLYETHYLENE GLYCOL 3350 17 GM POWD.PACK PO (09:24)
[2019-09-09] MEDS: PANTOPRAZOLE 40 MG TABLET PO (09:24)
[2019-09-09] MEDS: ALPRAZOLAM 0.5 MG TABLET 1 MG PO (09:35)
--- NOTE | 2019-09-09 11:41 | PM.DS ---
DS: Diagnosis Admitting Diagnosis Admitting Diagnosis: Unspecified intestinal obstruction, unspecified as to partial versus complete obstruction Discharge Diagnosis (1) Small bowel obstruction: Onset Date: ~09/05/19 Code(s): K56.609 - Unspecified intestinal obstruction, unspecified as to partial versus complete obstruction Status: Acute (2) GERD (gastroesophageal reflux disease): Onset Date: ~10/2016 Code(s): K21.9 - Gastro-esophageal reflux disease without esophagitis Status: Acute (3) Anxiety: Code(s): F41.9 - Anxiety disorder, unspecified Status: Acute (4) Leukopenia: Code(s): D72.819 - Decreased white blood cell count, unspecified Status: Acute (5) Hypokalemia: Code(s): E87.6 - Hypokalemia Status: Acute DS: Summary Hospital Course Reason for hospitalization: 54yo female here for partial SBO. Please see H&P for details. Hospital Course: 09/06/19 -- Patient admitted to [address] [place] [address]. General surgery is been consulted. Patient now having flatus and exam is relatively benign. Repeat KUB is ordered for today with results pending. Further determination once his results are known. Continue to encourage the patient to be up walking in the halls. Home medications on hold. Ativan available as needed for anxiety. Will continue the Pepcid for her acid reflux symptoms. The potassium has already been replaced. Will repeat potassium level in the morning with magnesium level. Continue IV fluids. Recommend patient monitor the left side lymph nodes at this time since they are small and mobile. All questions were answered. SCDs for DVT prophylaxis. Appreciate general surgery input. 09/07/19 -- Sx improving. She feels better overall. Diet to be advanced. Home once able to tolerate diet. Resume home meds. Encourage ambulation. B12 was low so replacement started. May be the etiology of her low WBC. 09/08/19 -- Hgb better today. Potassium still low and replaced again. Mg 2.0 yesterday. Diet advanced to full liquid. Dulcolax supp x 1 and add Miralax. Encouraged ambulation. 09/09/19 -- Patient feels well today. Multiple bowel movements yesterday. Tolerating oral intake. No significant abdominal pain. Feels ready for discharge Status at Discharge Functional status at discharge: independent ambulation Overall status at discharge: patient is back to baseline Time Spent with Patient Time attestation: Total time spent providing and/or coordinating discharge services: 32 minutes Specific discharge activities: Discussed at length techniques to manage this at home if symptoms recur and are mild. Also encouraged adhering to a low residue diet Exam Narrative: Exam Narrative: Gen - NARD Chest - CTA bilat, nml RR CV - RRR S1/S2 Abd - soft, NT/ND, +BS Ext - No pedal edema Psych - Nml mood and affect Skin - Warm and dry DS: Data Data Completed and Pending Labs on day of discharge: Labs from last 24 hours 09/09/19 05:06 Sodium 139 Potassium 3.4 Chloride 104 Carbon Dioxide 29 BUN 4 L Creatinine 0.60 L Estim Creat Clear Calc 72 Estimated GFR > 60 Glucose 97 Calcium 7.8 L Magnesium 2.1 Discharge Plan Discharge Attending physician on discharge: Dylan Odom Consulting providers: Sushil Greenwood Discharging Clinician: Dylan Odom Anticipated Discharge Date/Time: 09/09/19 11:46 Patient Disposition: Home, Self-Care Activity: unlimited Diet: low fiber and other - see discharge instructions Discharge Instructions: Followed low-fiber diet for 1 week. Then a feeling well okay to gradually increase fiber in the diet. Take 30 cc of milk a magnesia x1 if you go 24 hours without a bowel movement. Call the office if you continue to have abdominal cramping problems and would like to pursue a outpatient small-bowel follow-through study. Patient Instructions: Bowel Obstruction (DC), Antibiotic Form Stand
--- NOTE | 2019-09-09 13:48 | PC.NURSE ---
Discharged home per self and POV. Left with discharge paperwork and personal affects. Awake, alert, and oriented times four, no complaints. PCT escorted out to POV in wheelchair at 1345.
== END 2019-09-09 13:45 | disposition home or self-care (01) | DRG 247 ==
LOC: ANHED 12:44 → ANH2MED 16:46
PROVIDERS: Admitting Provider Internal Medicine; Emergency Provider Emergency Medicine; PCP Internal Medicine; Visit Provider Internal Medicine
DX: K56.609 Unspecified intestinal obstruction, unspecified as to partial versus complete obstruction (principal); F41.8 Other specified anxiety disorders; E87.6 Hypokalemia; K21.9 Gastro-esophageal reflux disease without esophagitis
CPT/HCPCS: 36415; 74018; 74019; 74177; 80048; 80053; 81001; 81025; 82607; 82746; 83605; 83690; 83735; 84443; 85025; 85027; 96361; 96365; 96366; 96374; 96375; 96376; 99285; A9270; G0378; G0379; J2060; J2270; J2405; J3420; J3480; J7030; J7120; Q9967

== ENCOUNTER 2022-12-30 16:57 | Emergency (ER) | payer MEDICARE, MEDICAID, SELFPAY ==
--- NOTE | ~2022-12-30 | XR_ITS ---
EXAM: XR shoulder RT min 2V DATE: 12/30/2022 17:51 HISTORY: pain / swelling after fall, HX OF FXed CLAVIC[place] . COMPARISON: 01/01/2015. FINDINGS: Normal mineralization. Old distal right clavicular fracture versus postsurgical change and chronic AC joint widening. No acute fracture or dislocation. No lytic or blastic lesion. Moderate gl enohumeral osteoarthritis. No erosion or periosteal change. Soft tissues within normal limits. IMPRESSION: No acute osseous finding in the right shoulder. Reviewed, dictated and finalized at location K.
--- NOTE | ~2022-12-30 | CT_ITS ---
EXAMINATION: CT cervical spine wo con DATE: 12/30/2022 17:50 INDICATION: midline neck pain after fall TECHNIQUE: Computed tomography (CT) of the cervical spine was performed without intravenous contrast. Automated exposure control and iterative reconstruction technique were employed. The dose-length pro duct was 117.96 mGy-cm. COMPARISON: 10/06/2019. FINDINGS: Vertebral Body Alignment: Intact. Stable minimal grade 1 anterolisthesis at C4-5. Craniocervical and atlantoaxial alignment: Moderate degenerative change. Alignment intact. Osseous structures/fracture: No evidence of a lytic or blastic process in the visualized spine. No e vidence of acute fracture. . Cervical soft tissues: The paraspinal soft tissues planes are maintained. Stable nodular pleural scar ring in the right medial apex. Degenerative changes: Degenerative changes, without severe neural foraminal or central canal narrowin g. IMPRESSION: No acute fracture or traumatic malalignment in the cervical spine. Reviewed, dictated and finalized at location K.
--- NOTE | ~2022-12-30 | XR_ITS ---
EXAM: XR forearm RT 2V DATE: 12/30/2022 18:27 HISTORY: pain and swelling after fall . COMPARISON: 01/13/2014. FINDINGS: Normal mineralization. No fracture or dislocation. No lytic or blastic lesion. Joint space s and physes are maintained. No erosion or periosteal change. Soft tissues within normal limits. IMPRESSION: No acute osseous finding in the right forearm. Reviewed, dictated and finalized at location K.
[2022-12-30 17:02] VITALS: BP 134/99; PULSE 71; RESP 16; TEMP 36.9; O2SAT 96
--- NOTE | 2022-12-30 17:29 | ED.GENADULT ---
HPI - General Adult General Chief complaint: Unspecified Stated complaint: agitated, ETOH Time Seen by Provider: 12/30/22 17:14 History of Present Illness HPI narrative: Patient is a 57-year-old female here here in police custody after an altercation. History obtained largely from nursing staff and police given patient's mental state. Apparently patient was pulled over today and she was physically aggressive towards the police officers, leading her to be tased in the right flank. Patient adamantly denies being aggressive towards police officers states that I am not like that . She is obviously intoxicated and is not making much sense with her history apart from what I can gather she was driving her elderly sick dog to the vet this to be put down. Does admit to alcohol use today but denies other drug use. She is complaining of right forearm pain and right shoulder pain. Related Data Home Medications Medication Instructions Recorded Confirmed alprazolam 1 mg tablet (Xanax) 1 mg PO TID PRN Anxiety 09/05/19 09/05/19 esomeprazole magnesium 40 mg 40 mg PO DAILY 09/05/19 09/05/19 capsule,delayed release famotidine 20 mg tablet 20 mg PO DAILY PRN Acid Reflux 09/05/19 09/05/19 metoclopramide HCl 10 mg tablet 10 mg PO Q6H PRN Nausea 09/05/19 09/05/19 (Reglan) ondansetron HCl 4 mg tablet 4 mg PO PRN PRN Nausea 09/05/19 09/05/19 (Zofran) quetiapine 50 mg tablet 50 mg PO HS 09/05/19 09/05/19 Allergies Allergy/AdvReac Type Severity Reaction Status Date / Time Penicillins Allergy Mild Hives Verified 09/05/19 11:40 Review of Systems Review of Systems: Gen.: Denies fevers or chills Eyes: Denies eye pain or visual change ENT: Denies congestion Respiratory: Denies shortness of breath or cough CV: Denies chest pain or palpitations GI: Denies abdominal pain nausea, emesis or diarrhea denies burning, urgency, frequency or hematuria Musculoskeletal: Reports right shoulder pain and neck pain. Neuro: Denies numbness, tingling, weakness or focal weakness Skin: Denies rash Except as documented, all other systems reviewed and negative PMFSH Past Medical History Medical History Anxiety With panic attacks Arthritis Back pain Depression on treatment with Seroquel. Diverticulitis Endometriosis GERD (gastroesophageal reflux disease) (~10/2016) Treated with PPI and H2 blockers Hx of bipolar disorder Related to the time she was undergoing a divorce Seizures [place] to be alcohol withdrawal related Self-mutilation Related to the time she was going through divorce. UTI (urinary tract infection) Wears glasses Surgical History Surgical History H/O rotator cuff surgery Right History of bladder surgery 2009 History of partial colectomy Sigmoid colon in 2016 S/P laparoscopic procedure For endometriosis in the complicated by bowel perforation requiring surgical repair S/P tendon repair History of left tendon repair after foot fracture Family History Family History (Updated 09/05/19 @ 18:47 by Sammy Dela Cruz RN) Father Family history of coronary artery disease Mother Lung cancer Bladder cancer Sibling Hypertension Social History Social History (Updated 09/06/19 @ 08:39 by Dylan Odom MD) Social History: History of cocaine use. Last used cocaine about 2 years ago. No history of IV drug use. She declines HIV and hepatitis testing. She drinks 6 alcoholic drinks per week. She smokes marijuana regularly. She lives alone but her boyfriend stays with her frequently. She is lifelong nonsmoker. She has 2 sons. She is full code. Her son Chun would be the individual making medical decisions for her if she is unable. Smoking status: Never smoker Alcohol intake: current Drinks per week: 3 Substance use: current Substance use type: marijuana Gender identity (if verbal
--- NOTE | 2022-12-30 17:47 | PC.NURSE ---
Pt to CT scan via stretcher at this time.
[2022-12-30] MEDS: MELOXICAM 7.5 MG TABLET PO (18:02)
[2022-12-30 18:52] VITALS: BP 132/88; PULSE 87; RESP 17; O2SAT 96
== END 2022-12-30 18:54 | disposition home or self-care (01) ==
LOC: ANHED 18:26
PROVIDERS: Emergency Provider Physician Assistant; PCP Internal Medicine
DX: M25.511 Pain in right shoulder (principal); S50.11XA Contusion of right forearm, initial encounter; M19.90 Unspecified osteoarthritis, unspecified site; N80.9 Endometriosis, unspecified; K21.9 Gastro-esophageal reflux disease without esophagitis; F41.0 Panic disorder [episodic paroxysmal anxiety]; F32.A Depression, unspecified; Z87.440 Personal history of urinary (tract) infections; Z90.49 Acquired absence of other specified parts of digestive tract; Y35.833A Legal intervention involving a conducted energy device, suspect injured, initial encounter
CPT/HCPCS: 72125; 73030; 73090; 99284; A9270

== ENCOUNTER 2023-12-28 08:11 | Emergency (ER) | payer OTHER, SELFPAY ==
--- NOTE | ~2023-12-28 | CT_ITS ---
CT of the Abdomen and Pelvis: Indication: Abdominal pain Technique: 2.5 mm axial scans were obtained through the abdomen and pelvis following intravenous adm inistration of 100 cc of Omnipaque 350. Dose reduction technique was used on this scan by utilizing a utomated exposure control and iterative reconstruction technique. The dose-length product (DLP) was 2 76.52 mGy-cm. Findings: Scans through the lung bases are unremarkable. The liver, spleen, pancreas, gallbladder, adrenals and kidneys are within normal limits. No evidence of aortic aneurysm. No lymphadenopathy. No bowel obstruction evident. Rectosigmoid anastomosis noted. There is wall thickening of multiple sm all bowel loops. No abscess or free air evident. Images through the pelvis were performed. Urinary bladder unremarkable. No pelvic mass seen. Small am ount of pelvic ascites. Impression: Wall thickening of multiple small bowel loops is most consistent with nonspecific infectious/inflamma tory enteritis. Small amount of ascites. Rectosigmoid anastomosis. Reviewed, dictated and finalized at [facility]. Impression: Wall thickening of multiple small bowel loops is most consistent with nonspecif ic infectious/inflammatory enteritis. Small amount of ascites. Rectosigmoid anastomosis.
[2023-12-28 08:20] VITALS: BP 135/76; PULSE 75; RESP 16; TEMP 36.3; O2SAT 100
--- NOTE | 2023-12-28 08:28 | ED.ABDPAIN ---
HPI - Abdominal Pain General Chief Complaint: Abdominal Pain Stated Complaint: abd pain, hx of abdominal surgeries Time Seen by Provider: 12/28/23 08:27 Source: patient and family Mode of arrival: ambulatory Limitations: no limitations History of Present Illness HPI narrative: 4 years old white female came to the emergency room with her significant other by private car complaining of diffuse abdominal pain for the last 3 days associated with nausea, vomited maximum 3 x 3 days ago. Patient report poor p.o. intake, patient thought maybe she have constipation and has been taking milk of magnesium lately. She denies any fever or chills. History of colon resection secondary to diverticulitis, diverticulitis, she smokes marijuana daily. She denies radiation of pain, aggravating or relieving factors. Related Data Home Medications Medication Instructions Recorded Confirmed alprazolam 1 mg tablet (Xanax) 1 mg PO TID PRN Anxiety 09/05/19 09/05/19 esomeprazole magnesium 40 mg 40 mg PO DAILY 09/05/19 09/05/19 capsule,delayed release famotidine 20 mg tablet 20 mg PO DAILY PRN Acid Reflux 09/05/19 09/05/19 metoclopramide HCl 10 mg tablet 10 mg PO Q6H PRN Nausea 09/05/19 09/05/19 (Reglan) ondansetron HCl 4 mg tablet 4 mg PO PRN PRN Nausea 09/05/19 09/05/19 (Zofran) quetiapine 50 mg tablet 50 mg PO HS 09/05/19 09/05/19 Allergies Allergy/AdvReac Type Severity Reaction Status Date / Time Penicillins Allergy Mild Hives Verified 12/28/23 08:12 Review of Systems Review of Systems: All systems reviewed & are unremarkable except as noted in HPI and below PMFSH Past Medical History Medical History Anxiety With panic attacks Arthritis Back pain Depression on treatment with Seroquel. Diverticulitis Endometriosis GERD (gastroesophageal reflux disease) (~10/2016) Treated with PPI and H2 blockers Hx of bipolar disorder Related to the time she was undergoing a divorce Seizures [place] to be alcohol withdrawal related Self-mutilation Related to the time she was going through divorce. UTI (urinary tract infection) Wears glasses Surgical History Surgical History H/O rotator cuff surgery Right History of bladder surgery 2009 History of partial colectomy Sigmoid colon in 2017 S/P laparoscopic procedure For endometriosis in the 1980s complicated by bowel perforation requiring surgical repair S/P tendon repair History of left tendon repair after foot fracture Family History Family History Father Family history of coronary artery disease Mother Lung cancer Bladder cancer Sibling Hypertension Social History Social History Social History: History of cocaine use. Last used cocaine about 2 years ago. No history of IV drug use. She declines HIV and hepatitis testing. She drinks 6 alcoholic drinks per week. She smokes marijuana regularly. She lives alone but her boyfriend stays with her frequently. She is lifelong nonsmoker. She has 2 sons. She is full code. Her son Chun would be the individual making medical decisions for her if she is unable. Smoking status: Never smoker Alcohol intake: current Drinks per week: 3 Substance use: current Substance use type: marijuana Gender identity (if verbalized by the patient): Female Spiritual care concerns: Yes (Tenriism) Agree to blood products: Yes Exam Narrative: General appearance: Well-developed, well-nourished Skin: Normal color Head: Normocephalic, nontraumatic Eyes: Clear conjunctiva ENT: Oropharynx normal, ears normal, nose normal Neck: Supple, nontender Chest and respiratory: Airway patent, no respiratory distress, no accessory muscle use Heart: Regular rate/rhythm Abdominal exam: Diffuse tender, no organomegaly, quiet bowel sound
[2023-12-28 09:04] LABS: Basophils Percent Auto 0.4 % (0.2-1.2); Eosinophils Absolute Auto 0.2 K/mm3 (0-0.3); Eosinophils Percent Auto 3.3 % (0-4.4); Hematocrit 43.9 % (37.0-47.0); Hemoglobin 14.4 g/dL (12.0-15.0); Immature Granulocyte Absolute 0.01 K/mm3 (0.00-0.031); Immature Granulocyte Percent A 0.2 % (0-0.5); Lymphocytes Absolute Auto 1.23 K/mm3 (0.9-3.2); Lymphocytes Percent Auto 23.5 % (18.3-44.2); Mean Corpuscular HGB Conc 32.8 g/dl (32-36); Mean Corpuscular Hemoglobin 32.7 pg (26-34); Mean Corpuscular Volume 99.5 fl (80-100); Mean Platelet Volume 9.2 fl (7.4-10.4); Monocytes Absolute Auto 0.4 K/mm3 (0.1-0.6); Monocytes Percent Auto 8.2 % (2.6-8.5); Neutrophils Absolute Auto 3.4 K/mm3 (1.3-6.7); Neutrophils Percent Auto 64.4 % (45.5-73.1); Platelet Count Result 273 k/mm3 (150-375); Red Blood Count 4.41 M/mm3 (4.2-5.4); Red Cell Distribution Width 12.4 % (11.5-14.5); White Blood Count 5.2 K/mm3 (4.5-10.0)
[2023-12-28] MEDS: SODIUM CHLORIDE 0.9% IV 1,000 ML 999 ML IV CONT (09:11)
[2023-12-28] MEDS: ONDANSETRON INJ 4 MG/2 ML VIAL IV PUSH ×2 (09:11→10:47)
[2023-12-28] MEDS: HYDROmorphone HCL INJ (*CRX) 1 MG/ML SYR 0.5 MG IV PUSH ×2 (09:12→10:47)
[2023-12-28 09:15] LABS: Alanine Aminotransferase 20 U/L (6-35); Albumin Level 4.2 g/dL (3.5-5.1); Alkaline Phosphatase 60 U/L (38-126); Anion Gap 6 mmol/L (4-12); Aspartate Amino Transferase 28 U/L (14-36); Bilirubin,Total 0.9 mg/dL (0.2-1.3); Blood Urea Nitrogen 7 mg/dL (7-17); Calcium 9.3 mg/dL (8.4-10.2); Carbon Dioxide 29 mmol/L (22-30); Chloride 102 mmol/L (98-107); Estimated CRCL calculation 67 ml/min; Estimated Glomerular Filt Rate > 60; Glucose 100 mg/dL (65-110); Lipase 56 U/L (23-300); Potassium 3.8 mmol/L (3.4-5.0); Sodium 137 mmol/L (137-145)
--- NOTE | 2023-12-28 09:36 | PC.NURSE ---
Pt states unable to urinate at this time for UA. Informed that she may need to be straight cath for specimen
[2023-12-28 09:37] VITALS: BP 132/62; PULSE 62; RESP 16; TEMP 36.7; O2SAT 99
[2023-12-28 10:23] VITALS: BP 118/77; PULSE 85; RESP 18; TEMP 36.7; O2SAT 100
[2023-12-28 10:40] LABS: Appearance Urine Clear (Clear); Bacteria Urine None Seen /hpf; Bilirubin Urine Negative (Negative); Blood Urine Negative (Negative); Color Urine Yellow (Yellow); Glucose Urine UA Negative (Negative); Ketones Urine Negative (Negative); Leukocyte Esterase Ur Negative LEU/UL (Negative); Need Manual Microscopic Reviewed; Nitrate Urine Negative (Negative); Non Pathogenic Casts 0-2; Protein Urine Trace mg/dL (Negative); Squamous Epithelial Cell Urine None Seen /hpf (Few); Urobilinogen Urine 0.2 mg/dL (<2.0); WBC Urine 0-5 /hpf (0-3)
[2023-12-28 10:52] LABS: Specific Grav Ur >= 1.099 (1.001-1.035)
[2023-12-28 10:57] LABS: Add Urine Microscopic? YES
[2023-12-28 11:12] VITALS: BP 127/86; PULSE 68; RESP 16; TEMP 36.6; O2SAT 99
== END 2023-12-28 11:14 | disposition home or self-care (01) ==
PROVIDERS: Emergency Provider Emergency Medicine; PCP Internal Medicine
DX: K52.9 Noninfective gastroenteritis and colitis, unspecified (principal); F41.0 Panic disorder [episodic paroxysmal anxiety]; M19.90 Unspecified osteoarthritis, unspecified site; F32.A Depression, unspecified; K21.9 Gastro-esophageal reflux disease without esophagitis; N80.9 Endometriosis, unspecified; Z87.440 Personal history of urinary (tract) infections; Z90.49 Acquired absence of other specified parts of digestive tract
CPT/HCPCS: 36415; 74177; 80053; 81001; 83605; 83690; 85025; 96361; 96374; 96375; 96376; 99284; J1170; J2405; J7030; Q9967

== ENCOUNTER 2024-01-10 10:18 | Inpatient (IN) | payer OTHER, SELFPAY ==
[2024-01-10] VITALS (29 sets, daily range): BP systolic 87–130; BP diastolic 52–89; PULSE 67–213; RESP 14–28; TEMP 36.7–37.2; O2SAT 92–100; BMI 21.8
--- NOTE | ~2024-01-10 | XR_ITS ---
Portable chest x-ray Comparison: None Clinical History: Tachycardia Findings: Lungs are clear, without focal consolidation or pleural effusion. Cardiomediastinal silho uette is unremarkable. Bones and soft tissues are unremarkable. Impression: Clear lungs. Reviewed, dictated and finalized at location M. Impression: Clear lungs.
--- NOTE | ~2024-01-10 | CT_ITS ---
Clinical Indication: Elevated d-dimer CT Scan of the Chest with Contrast: Technique: Contiguous sections were acquired throughout the chest after intravenous administration of 100 cc of Omnipaque 350. Dose reduction technique was used on this scan by utilizing automated expos ure control and iterative reconstruction technique. The dose-length product (DLP) was 166.49 mGy-cm. Findings: There is no evidence of any significant mediastinal, hilar or axillary lymphadenopathy. There is no f illing defect in the pulmonary arterial tree to suggest pulmonary embolus. There is no evidence of ao rtic dissection or aneurysm. There is no evidence of pleural or pericardial effusion. 9 mm right apical pulmonary nodule stable since prior cervical spine CT dated 12/30/2022. No other pulm onary abnormality seen. Images through the upper abdomen reveal no abnormalities. Impression: No evidence of pulmonary embolus, aortic dissection, or aortic aneurysm. 9 mm right apical pulmonary nodule is stable since 12/30/2022, therefore likely benign. Reviewed, dictated and finalized at location . Impression: No evidence of pulmonary embolus, aortic dissection, or aortic aneurysm. 9 mm right apical pulmonary nodule is stable since 12/30/2022, therefore likely b enign.
--- NOTE | ~2024-01-10 | CT_ITS ---
EXAMINATION: CT abdomen pelvis w con DATE: 01/10/2024 14:33 INDICATION: abdominal pain TECHNIQUE: Computed tomography (CT) of the abdomen and pelvis was performed with 100 mL Omnipaque-350 intravenous contrast. Automated exposure control and iterative reconstruction technique were employe d. The dose-length product was 230.37 mGy-cm. COMPARISON: 12/28/2023. FINDINGS: Lower thorax: Unremarkable Liver: Mild periportal edema. Biliary/Gallbladder: Gallbladder is partially contracted. No bile duct dilation. Pancreas: No mass or duct dilation. Spleen: Normal. Adrenals:No mass. Kidneys: No suspicious mass, obstructing stone, or hydronephrosis. GI tract: Mild distal esophageal and gastric wall edema. Uncomplicated rectosigmoid anastomosis. No s mall or large bowel dilation. Appendix not confidently visualized. Diverticulosis without diverticuli tis. Mesentery/Peritoneum: No ascites, mass, or free air. Retroperitoneum: No mass. Pelvis: Pelvic organs are within normal limits. Soft Tissues: Soft tissues and body wall unremarkable. Bones: No acute osseous finding. IMPRESSION: Mild esophagitis/gastritis. Portal edema, which can occur with hepatitis, cholangitis, right heart failure, or secondary to cardi ac congestion or overhydration/fluid resuscitation. Reviewed, dictated and finalized at location K. IMPRESSION: Mild esophagitis/gastritis. Portal edema, which can occur with hepatitis, cholangitis, right heart failure, or secondary to cardiac congestion or overhydration/fluid resuscitation.
--- NOTE | 2024-01-10 10:30 | ED.GENADULT ---
HPI - General Adult General Chief complaint: Unspecified Stated complaint: R/O c-diff Time Seen by Provider: 01/10/24 10:30 History of Present Illness HPI narrative: Patient is a 58-year-old female with history of anxiety, depression, GERD, bipolar here with diarrhea and racing heart. She states she was seen in this emergency department about 2 weeks ago for some abdominal pain. She was prescribed Levaquin and Flagyl, notes that her pain and symptoms had been largely improving until 2 days ago when she began having severe abdominal pain, cramping, a flushed sensation and copious amounts of diarrhea. She began having a racing heart today. She notes that she did call to try to make a primary care doctor appointment today however due to her palpitations she was worried that she would not make it her primary care doctor appointment and came into the emergency department instead. She denies history of abnormal heart rhythm. Denies cardiac history. Denies any active chest pain but continues to help palpitations. She additionally complains of diffuse abdominal pain and cramping and a continued flushed sensation. Related Data Home Medications Medication Instructions Recorded Confirmed alprazolam 1 mg tablet (Xanax) 1 mg PO TID PRN Anxiety 09/05/19 01/10/24 esomeprazole magnesium 40 mg 40 mg PO DAILY 09/05/19 01/10/24 capsule,delayed release famotidine 20 mg tablet 20 mg PO DAILY PRN Acid Reflux 09/05/19 01/10/24 metoclopramide HCl 10 mg tablet 10 mg PO Q6H PRN Nausea 09/05/19 01/10/24 (Reglan) quetiapine 50 mg tablet 50 mg PO HS 09/05/19 01/10/24 Allergies Allergy/AdvReac Type Severity Reaction Status Date / Time Penicillins Allergy Mild Hives Verified 01/10/24 10:19 Review of Systems Review of Systems: All systems reviewed & are unremarkable except as noted in HPI and below PMFSH Past Medical History Medical History Anxiety With panic attacks Arthritis Back pain Depression on treatment with Seroquel. Diverticulitis Endometriosis GERD (gastroesophageal reflux disease) (~10/2016) Treated with PPI and H2 blockers Hx of bipolar disorder Related to the time she was undergoing a divorce Seizures [place] to be alcohol withdrawal related Self-mutilation Related to the time she was going through divorce. UTI (urinary tract infection) Wears glasses Surgical History Surgical History H/O rotator cuff surgery Right History of bladder surgery 2009 History of partial colectomy Sigmoid colon in 2017 S/P laparoscopic procedure For endometriosis in the complicated by bowel perforation requiring surgical repair S/P tendon repair History of left tendon repair after foot fracture Family History Family History Father Family history of coronary artery disease Mother Lung cancer Bladder cancer Sibling Hypertension Social History Social History (Updated 01/10/24 @ 18:51 by Dylan Odom MD) Social History: History of cocaine use. No history of IV drug use. She drinks 3 alcoholic drinks per week. She smokes marijuana regularly. She lives alone but her boyfriend stays with her frequently. Her 2 sons also stay with her on occasion. She does not smoke. She has 2 sons. She is full code. Her son Chun would be the individual making medical decisions for her if she is unable. Smoking packs per day: 1 Smoking cigarettes per day: 20.0 Years smoked: 25 Smoking pack-years: 25.00 Smoking status: Never smoker Tobacco type: cigarettes Smoking end date: 03/24/18 Alcohol intake: current Drinks per week: 3 Substance use: current Substance use type: marijuana Do You Feel Safe in your Home?: Yes Lack of Transportation: No Lack of Food: Never True Current Housing: I Have Housing Concerned About Future Housing: No
--- NOTE | 2024-01-10 10:31 | ECG_ITS ---
SEE SCANNED COPY FOR CONFIRMED REPORT MTDD
[2024-01-10] MEDS: SODIUM CHLORIDE 0.9% IV 1,000 ML 1000 ML ×3 (10:42→12:10)
[2024-01-10 10:45] LABS: Basophils Absolute Auto 0.1 K/mm3 (0.0-0.1); Basophils Percent Auto 0.6 % (0.2-1.2); Eosinophils Absolute Auto 0.1 K/mm3 (0-0.3); Eosinophils Percent Auto 1.5 % (0-4.4); Hematocrit 46.4 % (37.0-47.0); Hemoglobin 15.5 g/dL (12.0-15.0); Immature Granulocyte Absolute 0.02 K/mm3 (0.00-0.031); Immature Granulocyte Percent A 0.3 % (0-0.5); Lymphocytes Absolute Auto 2.41 K/mm3 (0.9-3.2); Lymphocytes Percent Auto 30.6 % (18.3-44.2); Mean Corpuscular HGB Conc 33.4 g/dl (32-36); Mean Corpuscular Hemoglobin 32.6 pg (26-34); Mean Corpuscular Volume 97.5 fl (80-100); Mean Platelet Volume 8.9 fl (7.4-10.4); Monocytes Absolute Auto 0.6 K/mm3 (0.1-0.6); Monocytes Percent Auto 7.1 % (2.6-8.5); Neutrophils Absolute Auto 4.7 K/mm3 (1.3-6.7); Neutrophils Percent Auto 59.9 % (45.5-73.1); Platelet Count Result 419 k/mm3 (150-375); Red Blood Count 4.76 M/mm3 (4.2-5.4); Red Cell Distribution Width 12.5 % (11.5-14.5); White Blood Count 7.9 K/mm3 (4.5-10.0)
[2024-01-10 10:57] LABS: Prothrombin Time 13.1 Seconds (11.1-14.7)
[2024-01-10 10:58] LABS: Partial Thromboplastin Time 25.7 Seconds (22.3-36.8)
[2024-01-10 10:59] LABS: Alanine Aminotransferase 26 U/L (6-35); Albumin Level 4.9 g/dL (3.5-5.1); Alkaline Phosphatase 61 U/L (38-126); Anion Gap 9 mmol/L (4-12); Aspartate Amino Transferase 52 U/L (14-36); Bilirubin,Total 1.1 mg/dL (0.2-1.3); Blood Urea Nitrogen 14 mg/dL (7-17); CRP < 0.5 mg/dL (<1.0); Calcium 10.1 mg/dL (8.4-10.2); Carbon Dioxide 26 mmol/L (22-30); Chloride 102 mmol/L (98-107); Estimated CRCL calculation 38 ml/min; Estimated Glomerular Filt Rate 51; Glucose 126 mg/dL (65-110); Lipase 205 U/L (23-300); Potassium 3.3 mmol/L (3.4-5.0); Sodium 137 mmol/L (137-145)
[2024-01-10 11:10] LABS: Troponin I 0.074 ng/mL (0.000-0.034)
[2024-01-10] MEDS: ASPIRIN 81 MG CHEWABLE TABLET 324 MG PO (11:15)
[2024-01-10] MEDS: ONDANSETRON INJ 4 MG/2 ML VIAL IV PUSH (11:33)
[2024-01-10] MEDS: ADENOSINE IV SOLN 6 MG/2 ML VIAL IV PUSH (11:46)
--- NOTE | 2024-01-10 11:56 | ECG_ITS ---
SEE SCANNED COPY FOR CONFIRMED REPORT MTDD
[2024-01-10] MEDS: LORazepam INJ (*CRX) 2 MG/ML VIAL 1 MG IV PUSH (12:03)
[2024-01-10 12:23] LABS: Lactic Acid Reflex 1.7 mmol/L (0.7-2.0)
[2024-01-10 12:32] LABS: Influenza A QL RT-PCR Negative (Negative); Influenza B QL RT-PCR Negative (Negative); RSV RNA, RT-PCR Negative (Negative); SARS-CoV-2 RNA PCR Negative (Negative)
[2024-01-10 13:57] LABS: Troponin I 0.247 ng/mL (0.000-0.034)
[2024-01-10] MEDS: POTASSIUM BICARBONATE 25 MEQ TABEF 50 MEQ PO (16:38)
--- NOTE | 2024-01-10 16:47 | PC.NURSE ---
dinner tray ordered for patient
--- NOTE | 2024-01-10 17:51 | PM.IMHP ---
H&P: HPI History of Present Illness Date/Time: 01/10/24 17:51 Chief Complaint: Palpitations Narrative: 58yo female with anxiety, depression, GERD and bipolar d/o who presents to the ED with diarrhea and racing heart. She was seen in the ED on 12/28/23 for a 3 days hx of abdominal pain, n/v and poor po intake. Labs normal. CT Abd/pelvis showed wall thickening of multiple small bowel loops and small amount of ascites. She received 1 L of normal saline, Dilaudid IV, Zofran IV with significant improvement.?She was discharged on Zofran and 7 days of Levaquin and Flagyl. She noted that her abdominal pain persisted and she notified her doctor who continued Levaquin and Flagyl for another week. She developed markedly increased abdominal pain with cramping, feeling hot/cold, diaphoresis, n/v and copious amounts of diarrhea. The following day, she noted palpitations and left lower palpable/pleuritic chest pain. She took Imodium and he diarrhea resolved. She called the doctor's exchange and was told to go to the ED but she didn't have a ride (boyfriend was intoxicated). She used a heating pad and stayed in bed. She began having a racing heart today. She denies history of abnormal heart rhythm.? Denies cardiac history or hx of abnormal heart rhythm.? She was having lower substernal chest pain that was constant that resolved after the Adenosine. No further diarrhea since imodium. No melena or hematochezia, She complains of tinnitus (also improved now) and 1 month numbness in the fingers/toes but no hx of DM. Remainder of the ROS was negative. No other new medications other than those mentioned. ?She presented to the ED for evaluation. In the ED, her BP 87/54, Pulse 213 and RR 26. She was ill appearing but in NARD. CBC normal. CMP normal except potassium 3.3, AST 52, glucose 126 and Cr 1.1. TSH normal. Lipase normal. Troponin up to 0.25. Influenza, COVID and RSV PCR negative. CXR was clear. BCx collected. EKG showing NSR rate 81 (performed after Adenosine). CT Abd/pelvis showing portal edema and mild esophagitis/gastritis. Presumed SVT but no tracings to evaluate. She was given Potassium, Ativan, ASA and Zofran. She was fluid resuscitated with improved BP and drop in HR. Vagal attempts were unsuccessful. Adenosine 6mg given once and patient converted to NSR. She was admitted for further care Review of Systems Review of Systems: All systems reviewed & are unremarkable except as noted in HPI and below PMFSH Past Medical History Medical History Anxiety With panic attacks Arthritis Back pain Depression on treatment with Seroquel. Diverticulitis Endometriosis GERD (gastroesophageal reflux disease) (~10/2016) Treated with PPI and H2 blockers Hx of bipolar disorder Related to the time she was undergoing a divorce Seizures [place] to be alcohol withdrawal related Self-mutilation Related to the time she was going through divorce. UTI (urinary tract infection) Wears glasses Surgical History Surgical History H/O rotator cuff surgery Right History of bladder surgery 2009 History of partial colectomy Sigmoid colon in 2016 S/P laparoscopic procedure For endometriosis in the complicated by bowel perforation requiring surgical repair S/P tendon repair History of left tendon repair after foot fracture Family History Family History Father Family history of coronary artery disease Mother Lung cancer Bladder cancer Sibling Hypertension Social History Social History (Updated 01/10/24 @ 18:51 by Dylan Odom MD) Social History: History of cocaine use. No history of IV drug use. She drinks 3 alcoholic drinks per week. She smokes marijuana regularly. She lives alone but her boyfriend stays with her frequently. Her 2 sons also stay with her on occasion. She does not smoke
--- NOTE | 2024-01-10 18:12 | ADMGEN ---
This patient, Claire Garcia, was admitted to IMU Room 211-01. Patient/family oriented to hospital policies and general routines including ID bracelet, bed and alarms, visiting hours, pain management, procedures, bathroom and other care routines, personal items, smoking policy, room service/diet, and visiting hours. Information on how to activate the Rapid Response Team has been discussed. Patient/Family are encouraged to report perceived risks to care and to ask questions if they do not understand what they are told or what they should do.
[2024-01-10 20:40] LABS: D Dimer 0.65 ug/mL (<0.48)
[2024-01-10 20:45] LABS: Troponin I 0.345 ng/mL (0.000-0.034)
[2024-01-10] MEDS: FAMOTIDINE 20 MG TABLET PO (20:45)
[2024-01-10] MEDS: SODIUM CHLORIDE 0.9% IV 1,000 ML 70 ML IV CONT (20:45)
[2024-01-10] MEDS: QUEtiapine FUMARATE 25 MG TABLET 50 MG PO (23:22)
[2024-01-10] MEDS: MORPHINE SULFATE (*CRX) 2 MG/ML INJ 1 MG IV PUSH (23:22)
[2024-01-10] MEDS: ALPRAZolam (*CRX) 0.5 MG TABLET PO (23:22)
[2024-01-10 23:52] LABS: Appearance Urine Clear (Clear); Bacteria Urine None Seen /hpf; Bilirubin Urine Negative (Negative); Blood Urine Negative (Negative); Color Urine Yellow (Yellow); Glucose Urine UA Negative (Negative); Ketones Urine Negative (Negative); Leukocyte Esterase Ur Trace LEU/UL (Negative); Nitrate Urine Negative (Negative); Protein Urine Negative (Negative); RBC Urine 0-2 /hpf (0-2); Specific Grav Ur 1.025 (1.001-1.035); Squamous Epithelial Cell Urine None Seen /hpf (Few); Urobilinogen Urine 0.2 mg/dL (<2.0); WBC Urine 0-5 /hpf (0-3); pH Urine 5.5 (5.0-9.0)
[2024-01-11] VITALS (11 sets, daily range): BP systolic 107–123; BP diastolic 63–79; PULSE 52–72; RESP 16–24; TEMP 36.3–36.6; O2SAT 98–100
--- NOTE | 2024-01-11 | ECHO_ITS ---
Patient Info Name: Claire Garcia Age: 58 years : 1965 Gender: Female Ht: 62 in Wt: 119 lbs BSA: 1.54 m2 HR: 54 bpm BP: 108 / 63 mmHg Heart Rhythm: Sinus Rhythm Technical Quality: Good Exam Date: 01/11/2024 7:36 AM Exam Location: Echo Lab Patient Status: Inpatient Admit Date: 01/10/2024 Staff Ordering Physician: Dylan Odom MD Donor Processor: Maddie Conley RDCS Attending Provider: Courtney Gonzalez MD Exam Type: CA echo doppler color flow Study Info Indications - SVT Complete two-dimensional, color flow and Doppler transthoracic echocardiogram is performed. Summary 1. Complete two-dimensional, color flow and Doppler transthoracic echocardiogram is performed. 2. Left ventricular chamber dimension is normal. 3. Left ventricular systolic function is normal, estimated at 60-65%. 4. The left ventricular diastolic function is normal. 5. Right ventricular systolic function is normal. 6. No significant valvular disease. Left Ventricle Left ventricular chamber dimension is normal. Left ventricular systolic function is normal, estimated at 60-65%. There is no increased left ventricular wall thickness. The left ventricular diastolic function is normal. Right Ventricle Right ventricular chamber dimension is normal. Right ventricular systolic function is normal. Left Atria Left atrial chamber dimension is normal. Right Atria Right atrial chamber dimension is normal. Atrial Septum Intact interatrial septum visualized by color flow imaging. Aortic Valve The aortic valve is trileaflet. There is no aortic valve stenosis. There is no aortic valve regurgitation. Pulmonic Valve The pulmonic valve is not well visualized. There is trace pulmonic regurgitation. Mitral Valve There is trace mitral valve regurgitation. Tricuspid Valve There is trace tricuspid valve regurgitation. Pericardium/Pleural There is no pericardial effusion. Inferior Vena Cava Normal inferior vena cava with >50% collapse upon inspiration consistent with normal right atrial pressure, 3 mmHg. Aorta The aortic root size at the sinus of Valsalva is normal. Left Ventricular Outflow Tract Name Value Normal LVOT 2D LVOT Diameter 2.0 cm LVOT Doppler LVOT Peak Gradient 4 mmHg LVOT Mean Gradient 2 mmHg LVOT VTI 21 cm LVOT VTI/AV VTI Ratio 0.7 LVOT Stroke Volume 66 ml LVOT CO 4.5 l/min LVOT CI 2.9 l/min/m2 Pulmonic Valve Name Value Normal RVOT Doppler RVOT Peak Gradient 1 mmHg PV Doppler PV Peak Gradient 2 mmHg Mitral Valve Name
[2024-01-11 00:02] LABS: Add Urine Microscopic? YES
[2024-01-11 00:05] LABS: Amphetamine Screen Urine Negative (Negative); Barbiturate Screen Urine Negative (Negative); Benzodiazepines Screen Urine Negative (Negative); Cannabinoid Screen Urine Negative (Negative); Cocaine Screen Urine Positive (Negative); Methadone Screen Urine Negative (Negative); Opiate Screen Urine Negative (Negative); Phencyclidine Screen Urine Negative (Negative)
[2024-01-11 02:33] LABS: Basophils Percent Auto 0.6 % (0.2-1.2); Eosinophils Absolute Auto 0.1 K/mm3 (0-0.3); Eosinophils Percent Auto 1.8 % (0-4.4); Hematocrit 33.9 % (37.0-47.0); Immature Granulocyte Absolute 0.01 K/mm3 (0.00-0.031); Immature Granulocyte Percent A 0.2 % (0-0.5); Lymphocytes Absolute Auto 2.29 K/mm3 (0.9-3.2); Lymphocytes Percent Auto 45.9 % (18.3-44.2); Mean Corpuscular HGB Conc 32.4 g/dl (32-36); Mean Corpuscular Hemoglobin 32.4 pg (26-34); Monocytes Absolute Auto 0.3 K/mm3 (0.1-0.6); Monocytes Percent Auto 6.2 % (2.6-8.5); Neutrophils Absolute Auto 2.3 K/mm3 (1.3-6.7); Neutrophils Percent Auto 45.3 % (45.5-73.1); Platelet Count Result 238 k/mm3 (150-375); Red Blood Count 3.39 M/mm3 (4.2-5.4); Red Cell Distribution Width 12.5 % (11.5-14.5)
[2024-01-11 02:47] LABS: Alanine Aminotransferase 21 U/L (6-35); Albumin Level 3.1 g/dL (3.5-5.1); Alkaline Phosphatase 59 U/L (38-126); Anion Gap 4 mmol/L (4-12); Aspartate Amino Transferase 31 U/L (14-36); Bilirubin,Total 0.3 mg/dL (0.2-1.3); Blood Urea Nitrogen 11 mg/dL (7-17); Calcium 8.3 mg/dL (8.4-10.2); Carbon Dioxide 22 mmol/L (22-30); Chloride 112 mmol/L (98-107); Estimated CRCL calculation 67 ml/min; Estimated Glomerular Filt Rate > 60; Glucose 94 mg/dL (65-110); Magnesium 2.2 mg/dL (1.6-2.3); Phosphorus 3.3 mg/dL (2.5-4.5); Potassium 3.7 mmol/L (3.4-5.0); Sodium 138 mmol/L (137-145)
[2024-01-11 03:24] LABS: Troponin I 0.257 ng/mL (0.000-0.034)
[2024-01-11] MEDS: ENOXAPARIN 40 MG/0.4 ML SYRINGE SUB-Q (08:57)
[2024-01-11] MEDS: FAMOTIDINE 20 MG TABLET PO (08:57)
[2024-01-11] MEDS: ALPRAZolam (*CRX) 0.5 MG TABLET 1 MG PO (09:40)
[2024-01-11] MEDS: PANTOPRAZOLE 40 MG TABLET PO (09:43)
[2024-01-11] MEDS: CYANOCOBALAMIN 1,000 MCG TABLET 1000 MCG PO (09:43)
[2024-01-11] MEDS: polyethylene glycoL 3350 17 GM POWD.PACK PO (09:43)
[2024-01-11 13:56] LABS: Toxigenic C. Diff NEGATIVE (NEGATIVE)
[2024-01-11] MEDS: ACETAMINOPHEN 325 MG TABLET 650 MG PO (15:33)
--- NOTE | 2024-01-11 18:02 | PM.DS ---
DS: Admitting Diagnosis Discharge Date 01/11/24 Admitting Diagnosis Diarrhea and racing heart DS: Discharge Diagnosis Discharge Diagnosis (1) Tachyarrhythmia: Code(s): R00.0 - Tachycardia, unspecified Status: Acute (2) Elevated troponin: Code(s): R79.89 - Other specified abnormal findings of blood chemistry Status: Acute (3) Hypokalemia: Code(s): E87.6 - Hypokalemia Status: Acute (4) Abdominal pain: Code(s): R10.9 - Unspecified abdominal pain Status: Acute (5) LINA (acute kidney injury): Code(s): N17.9 - Acute kidney failure, unspecified Status: Acute DS: Summary Hospital Course Reason for hospitalization: 58yo female with anxiety, depression, GERD and bipolar d/o who presents to the ED with diarrhea and racing heart. Please see H&P for details Hospital Course: In the ED, her BP 87/54, Pulse 213 and RR 26. She was ill appearing but in NARD. CBC normal. CMP normal except potassium 3.3, AST 52, glucose 126 and Cr 1.1. TSH normal. Lipase normal. Troponin up to 0.25. Influenza, COVID and RSV PCR negative. CXR was clear. BCx collected and were negative to date. EKG showing NSR rate 81 (performed after Adenosine). CT Abd/pelvis showing portal edema and mild esophagitis/gastritis. Portal edema related to eelvated heart rate. Presumed SVT but no tracings to evaluate. She was given Potassium, Ativan, ASA and Zofran. She was fluid resuscitated with improved BP and drop in HR. Vagal attempts were unsuccessful. Adenosine 6mg given once and patient converted to NSR. She was admitted for further care. DDimer was positive. CTA chest showing no PE. Elevated Troponin was flat and felt related to demand ischemia from the elevated heart rate. UDS returned positive for cocaine and patient does admit to using cocaine. She was educated about the benefits of not using drugs. She voiced understanding of this. Echo was normal. Diarrhea was improving. CDiff negative. Stool Cx pending. Renal function better with IV fluids. She overall did well and was able to be discharged home on 01/11/24 Status at Discharge Cognitive/behavioral status at discharge: stable Time Spent with Patient Time attestation: Total time spent providing and/or coordinating discharge services: 35 minutes Time spent: Greater than 30 minutes Exam Narrative: 97.9 122/74 67 24 99% ra Gen - NARD Chest - CTA bilaterally, nml RR CV - RRR. S1-S2. Abd - soft, NT/ND Ext - no pedal edema. Neuro - nonfocal Psych - normal mood and affect. Skin - warm and dry. DS: Data Data Completed and Pending Labs on day of discharge: Labs from last 24 hours 01/11/24 01/11/24 01/10/24 12:50 02:14 23:33 WBC 5.0 RBC 3.39 L Hgb 11.0 L D Hct 33.9 L MCV 100.0 MCH 32.4 MCHC 32.4 RDW 12.5 Plt Count 238 MPV 9.0 Immature Gran % (Auto) 0.2 Neut % (Auto) 45.3 L Lymph % (Auto) 45.9 H [place] % (Auto) 6.2 Eos % (Auto) 1.8 Baso % (Auto) 0.6 Lymph # (Auto) 2.29 [place] # (Auto) 0.3 Eos # (Auto) 0.1 Baso # (Auto) 0.0 Abs Immat Gran (auto) 0.01 Absolute Neuts (auto) 2.3 Absolute Nucleated RBC 0.000 Nucleated RBC % 0.0 D-Dimer Sodium 138 Potassium 3.7 Chloride 112 H Carbon Dioxide 22 Anion Gap 4 BUN 11 Creatinine 0.60 L Estim Creat Clear Calc 67 Estimated GFR > 60 Glucose 94 Calcium 8.3 L Phosphorus 3.3 Magnesium 2.2 Total Bilirubin 0.3 AST 31 ALT 21 Alkaline Phosphatase 59 Troponin I 0.257 H* D Total Protein 5.0 L Albumin 3.1 L Urine Color Yellow Urine Appearance Clear Urine pH 5.5 Ur Specific [place] 1.025 Urine Protein Negative Urine Glucose (UA) Negative Urine Ketones Negative Ur Blood (Man) Negative Urine Nitrate Negative Urine Bilirubin Negative Urine Urobilinogen 0.2 Leukocyte Esterase Rfl Trace H Urine RBC 0-2 Ur
--- NOTE | 2024-01-18 08:28 | PC.NURSE ---
Stool and Blood cx are negative. Dr. Lei donahue.
== END 2024-01-11 18:31 | disposition home or self-care (01) | DRG 309 ==
LOC: ANHED 11:19 → ANHIMU 16:52
PROVIDERS: Admitting Provider General Practice; Emergency Provider Student in an Organized Health Care Education/Training Program; PCP Internal Medicine; Visit Provider Internal Medicine
DX: I47.10 Supraventricular tachycardia, unspecified (principal); N17.9 Acute kidney failure, unspecified; R19.7 Diarrhea, unspecified; E87.6 Hypokalemia; F41.9 Anxiety disorder, unspecified; F14.90 Cocaine use, unspecified, uncomplicated; F31.9 Bipolar disorder, unspecified; K21.9 Gastro-esophageal reflux disease without esophagitis; K29.00 Acute gastritis without bleeding; M19.90 Unspecified osteoarthritis, unspecified site; R79.89 Other specified abnormal findings of blood chemistry; Z20.822 Contact with and (suspected) exposure to COVID-19; Z88.0 Allergy status to penicillin
CPT/HCPCS: 36415; 71045; 71275; 74177; 80053; 80307; 81001; 83605; 83690; 83735; 84100; 84443; 84484; 85025; 85380; 85610; 85730; 86140; 87040; 87045; 87427; 87449; 87493; 87637; 93005; 93306; 96361; 96374; 96375; 99285; A9270; J0153; J1650; J2060; J2270; J2405; J7030; Q9967

== ENCOUNTER 2024-07-11 15:21 | Emergency (ER) | payer OTHER, SELFPAY ==
[2024-07-11 15:31] VITALS: BP 111/83; PULSE 79; RESP 16; TEMP 36.9; O2SAT 100
[2024-07-11 15:50] LABS: EDUAAPPEAR Clear; EDUABILI Negative (Negative); EDUABLOOD Negative (Negative); EDUACOLOR1 Yellow; EDUAGLUCOSE Negative (Negative); EDUAKETONE Negative (Negative); EDUALEUKO Negative (Negative); EDUANITRATE Negative (Negative); EDUAPH 5.5; EDUAPROTEIN Negative (Negative); EDUASPGRAVITY 1.025; EDUAUROBILI 0.2
--- NOTE | 2024-07-11 15:57 | ED.ABDPAIN ---
HPI - Abdominal Pain General Chief Complaint: Urogenital-Female Stated Complaint: UTI/Vaginal Problems Time Seen by Provider: 07/11/24 15:59 Source: patient, RN notes reviewed and old records reviewed Mode of arrival: ambulatory Limitations: no limitations History of Present Illness HPI narrative: Patient has been taking baths in Epsom salt with Lavender and eucalyptus scents, now has dysuria. Denies fever, chills, sweats. Denies zac blood in the urine. Symptoms have been present for 1 day. Denies any injury or trauma. No back pain Related Data Home Medications Medication Instructions Recorded Confirmed alprazolam 1 mg tablet (Xanax) 1 mg PO TID PRN Anxiety 09/05/19 01/10/24 esomeprazole magnesium 40 mg 40 mg PO DAILY 09/05/19 01/10/24 capsule,delayed release famotidine 20 mg tablet 20 mg PO DAILY PRN Acid Reflux 09/05/19 01/10/24 quetiapine 50 mg tablet 50 mg PO HS 09/05/19 01/10/24 Allergies Allergy/AdvReac Type Severity Reaction Status Date / Time Penicillins Allergy Mild Hives Verified 07/11/24 16:06 Review of Systems Review of Systems: All systems reviewed & are unremarkable except as noted in HPI and below Constitutional: Constitutional: Reports no additional constitutional complaints ENT: Reports system reviewed and no additional complaints, except as documented Cardiovascular: Cardiovascular: Reports no additional cardiovascular complaints Respiratory: Respiratory: Reports no additional respiratory complaints Gastrointestinal: Gastrointestinal: Reports no additional gastrointestinal complaints Genitourinary: Genitourinary: Reports no additional female genitourinary complaints, Reports as per HPI, Reports dysuria and Denies flank pain PMFSH Past Medical History Medical History Anxiety With panic attacks Arthritis Back pain Depression on treatment with Seroquel. Diverticulitis Endometriosis GERD (gastroesophageal reflux disease) (~10/2016) Treated with PPI and H2 blockers Hx of bipolar disorder Related to the time she was undergoing a divorce Seizures [place] to be alcohol withdrawal related Self-mutilation Related to the time she was going through divorce. UTI (urinary tract infection) Wears glasses Surgical History Surgical History H/O rotator cuff surgery Right History of bladder surgery 2009 History of partial colectomy Sigmoid colon in 2017 S/P laparoscopic procedure For endometriosis in the 1980s complicated by bowel perforation requiring surgical repair S/P tendon repair History of left tendon repair after foot fracture Family History Family History Father Family history of coronary artery disease Mother Lung cancer Bladder cancer Sibling Hypertension Social History Social History Social History: History of cocaine use. No history of IV drug use. She drinks 3 alcoholic drinks per week. She smokes marijuana regularly. She lives alone but her boyfriend stays with her frequently. Her 2 sons also stay with her on occasion. She does not smoke. She has 2 sons. She is full code. Her son Chun would be the individual making medical decisions for her if she is unable. Smoking packs per day: 1 Smoking cigarettes per day: 20.0 Years smoked: 25 Smoking pack-years: 25.00 Smoking status: Never smoker Tobacco type: cigarettes Smoking end date: 03/24/18 Alcohol intake: current Drinks per week: 3 Substance use: current Substance use type: marijuana Do You Feel Safe in your Home?: Yes Lack of Transportation: No Lack of Food: Never True Current Housing: I Have Housing Concerned About Future Housing: No Difficulty Paying Gas/Electric Bills: No Difficulty Paying for Meds: No Currently Unemployed: No Education: Hig
== END 2024-07-11 16:18 | disposition home or self-care (01) ==
PROVIDERS: Emergency Provider Nurse Practitioner Family; PCP Internal Medicine
DX: R30.0 Dysuria (principal); Z87.891 Personal history of nicotine dependence; F12.90 Cannabis use, unspecified, uncomplicated; N80.9 Endometriosis, unspecified; K21.9 Gastro-esophageal reflux disease without esophagitis; M19.90 Unspecified osteoarthritis, unspecified site; F41.9 Anxiety disorder, unspecified; F32.A Depression, unspecified
CPT/HCPCS: 81003; 99212; G0463

== ENCOUNTER 2024-12-19 16:15 | Emergency (ER) | payer OTHER, SELFPAY ==
[2024-12-19 16:23] VITALS: BP 105/63; PULSE 87; RESP 18; TEMP 36.2; O2SAT 100
--- NOTE | 2024-12-19 16:42 | ED_ITS ---
HPI - Female Genitourinary General Chief complaint: Urogenital-Female Stated complaint: Low Back Pain Source: patient and RN notes reviewed Mode of arrival: ambulatory Limitations: no limitations History of Present Illness HPI Narrative: 59-year-old female presented for complaint of burning with urination over the past 2 days. Reports bilateral lower back pain. States she was in the ER about a week ago for diarrhea related to nerves and admits she has difficult with personal hygiene due to right shoulder pain. Denies hematuria, nausea, vomiting, abdominal pain, constipation, diarrhea, fevers or chills. Related Data Home Medications ?Medication ?Instructions ?Recorded ?Confirmed ?Last Taken ?Type alprazolam 1 mg tablet (Xanax) 1 mg PO TID PRN Anxiety 09/05/19 01/10/24 Unknown History esomeprazole magnesium 40 mg 40 mg PO DAILY 09/05/19 01/10/24 Unknown History capsule,delayed release famotidine 20 mg tablet 20 mg PO DAILY PRN Acid Reflux 09/05/19 01/10/24 Unknown History quetiapine 50 mg tablet 50 mg PO HS 09/05/19 01/10/24 Unknown History Allergies Allergy/AdvReac Type Severity Reaction Status Date / Time Penicillins Allergy Mild Hives Verified 12/19/24 16:28 Review of Systems Review of Systems: CONSTITUTIONAL: Denies body aches, fever, chills, or sweats. CARDIOVASCULAR: Denies chest pain, palpitations, or edema. RESPIRATORY: Denies cough or dyspnea. GASTROINTESTINAL: Denies abdominal pain, nausea, vomiting, or diarrhea. GENITOURINARY: Reports dysuria, denies frequency, urgency, hematuria, flank pain SKIN: Denies rash MUSCULOSKELETAL: reports back pain PMFSH Past Medical History Medical History Anxiety With panic attacks Arthritis Back pain Depression on treatment with Seroquel. Diverticulitis Endometriosis GERD (gastroesophageal reflux disease) (~10/2016) Treated with PPI and H2 blockers Hx of bipolar disorder Related to the time she was undergoing a divorce Seizures [place] to be alcohol withdrawal related Self-mutilation Related to the time she was going through divorce. UTI (urinary tract infection) Wears glasses Surgical History Surgical History H/O rotator cuff surgery Right History of bladder surgery 2009 History of partial colectomy Sigmoid colon in 2017 S/P laparoscopic procedure For endometriosis in the 1980s complicated by bowel perforation requiring surgical repair S/P tendon repair History of left tendon repair after foot fracture Family History Family History Father Family history of coronary artery disease Mother Lung cancer Bladder cancer Sibling Hypertension Social History Social History Social History: History of cocaine use. No history of IV drug use. She drinks 3 alcoholic drinks per week. She smokes marijuana regularly. She lives alone but her boyfriend stays with her frequently. Her 2 sons also stay with her on occasion. She does not smoke. She has 2 sons. She is full code. Her son Chun would be the individual making medical decisions for her if she is unable. Smoking packs per day: 1 Smoking cigarettes per day: 20.0 Years smoked: 25 Smoking pack-years: 25.00 Smoking status: Never smoker Tobacco type: cigarettes Smoking end date: 03/24/18 Alcohol intake: current Drinks per week: 3 Substance use: current Substance use type: marijuana Do You Feel Safe in your Home?: Yes Lack of Transportation: No Lack of Food: Never True Current Housing: I Have Housing Concerned About Future Housing: No Difficulty Paying Gas/Electric Bills: No Difficulty Paying for Meds: No Currently Unemployed: No Education: High School Diploma/GED Difficulty w/ Childcare or Family Care: No Gender identity (if verbalized by the patient): Female Spiritual care concerns: Yes (Confucianism) Agree to blood products: Yes Comments At time of signature, I have reviewed and agree with nursing past medical, surgical, social and family history unless otherwise noted. Please see nursing chart for further information. There is no relevant family history pertinent to the presenting complaint Exam Narrative: GENERAL: Well-appearing and in no acute distress. ENT: Mucous membranes pink and moist. NECK: Normal AROM. CHEST: No respiratory distress. Clear to auscultation. HEART: Regular rate and rhythm. ABDOMEN: Soft, nontender, nondistended, normal active bowel sounds. No CVA tenderness SKIN: Warm, dry, no rash. NEURO: No focal deficits. Alert and oriented x3. Gait steady. Course Course Emergency Course: Patient is aware of diagnosis, understands and agrees to treatment plan. Anticipatory guidance given. Patient agrees to follow-up as directed and is aware of reasons to seek care at the emergency department. Portions of this record may have been created with voice recognition software Level of Care: Express Care Visit Vital Signs Vital signs: Vital Signs Temperature 97.1 F L 12/19/24 16:23 Pulse Rate 87 12/19/24 16:23 Respiratory Rate 18 12/19/24 16:23 Blood Pressure 105/63 12/19/24 16:23 Pulse Oximetry 100 12/19/24 16:23 Oxygen Delivery Room Air 12/19/24 16:23 Temperature 97.1 F L 12/19/24 16:23 Pulse Rate 87 12/19/24 16:23 Respiratory Rate 18 12/19/24 16:23 Blood Pressure 105/63 12/19/24 16:23 Pulse Oximetry 100 12/19/24 16:23 Oxygen Delivery Room Air 12/19/24 16:23 Reviewed MDM - Female Genitourinary MDM Narrative Medical decision making narrative: Discussed physical exam findings, will treat for UTI and culture. Advised supportive measures and signs/symptoms to go to the ER. Pt is appropriate for outpt treatment and f/u. Differential Diagnosis Differential diagnosis: Likely urinary tract infection, vaginitis and cystitis Discharge Plan Discharge Clinical Impression: Dysuria Patient Disposition: Home, Self-Care Condition: Stable Instructions: Antibiotic Form, Urinary Tract Infection in Women (ED) Additional Instructions: Take the antibiotic as prescribed The urine will be sent of for a culture to identify what type of bacteria is causing your infection. If the culture shows that the antibiotic will not get rid of your infection, you will be notified and a new antibiotic will be called in for you. Increase water intake Wipe front to back Wear clean undergarments daily Take showers not baths you will need to follow up with your PCP, call to schedule an appointment. Go to the ER for any worsening symptoms or concerns Patient Language: Kazakh Prescriptions: New nitrofurantoin monohyd/m-cryst [Macrobid] 100 mg capsule 100 mg PO Q12H 5 Days Qty: 10 0RF Rx Instructions: must administer with a meal/food No Action alprazolam [Xanax] 1 mg Tablet 1 mg PO TID PRN (Reason: Anxiety) famotidine 20 mg Tablet 20 mg PO DAILY PRN (Reason: Acid Reflux) esomeprazole magnesium 40 mg Capsule,Delayed Release(Dr/Ec) 40 mg PO DAILY quetiapine 50 mg Tablet 50 mg PO HS cyanocobalamin (vitamin B-12) 1,000 mcg capsule 1,000 mcg PO DAILY Qty: 30 2RF ondansetron 4 mg tablet,disintegrating 4 mg PO Q6H PRN (Reason: nausea and vomiting) Qty: 10 0RF Follow-up/Referrals: Vanessa,Alonzo Montelongo MD [Primary Care Provider] - Stand Alone Forms: Work/School Release IP Time of Disposition: 16:58
[2024-12-19 16:52] LABS: EDUAAPPEAR Cloudy; EDUABILI Negative (Negative); EDUABLOOD 2+ (Negative); EDUACOLOR1 Light/Pale; EDUAGLUCOSE Negative (Negative); EDUAKETONE Negative (Negative); EDUALEUKO 1+ (Negative); EDUANITRATE Negative (Negative); EDUAPROTEIN Negative (Negative); EDUAUROBILI 0.2
--- OUTSIDE RECORDS SUMMARY | 2024-12-19 18:31 | XMS_ITS | Encounter Summary ---
Author Organization [facility] Address 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
--- OUTSIDE RECORDS SUMMARY | 2024-12-19 18:31 | XMS_ITS | Clinical Summary ---
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
--- OUTSIDE RECORDS SUMMARY | 2024-12-19 18:31 | XMS_ITS | Encounter Summary ---
Author Organization [facility] Address [facility] [place] [address] Care Team Providers Care Curb Builder Name Role Phone Alonzo Mendez MD Primary Care Provider [phone] Encounter Details Date Type Department Care Team (Late st Contact Info) Description 08/18/2024 Vee24 Message Enc [facility] Family & Internal Medicine [address] [address] [place] Provider Barium Swallow study Social History Tobacco Use Types Packs/Day Years Used Date Smoking Tobacco: Never Smokeless Tobacco: Never Alcohol Use Standard Drinks/Week Comments Not Currently 0 (1 standard drink = 0.6 oz pur e alcohol) AUDIT-C Answer Date Recorded Frequency of Alcohol Consumption Monthly or less 09/15/2018 Average Number of Drinks 1 or 2 018 Frequency of Binge Drinking Not on file 08/28 PHQ-2 Answer Date Recorded Patient Health Questionnaire-2 Score 0 05/04/2024 Comments No Sex and Gender Information Value Date Recorded Sex Assigned at Female 09/15/2018 3:11 PM 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 Legal Sex Female 3:51 PM CDT Gender Identity Female 09/15/2018 3:11 PM TRAY SERVER Sexual Orientation Straight 09/15/2018 3: 11 PM TRAY SERVER documented as of this encounter Plan of Treatment Upcoming Encounters Date Type Department Care Team (Late st Contact Info) Description 12/22/2024 12:30 PM CDT Appointment [place] [place] [address] Alonzo Mendez MD [address] [place] [phone] documented as of this encounter Visit Diagnoses Not on filedocumented in this encounter Additional Health Concerns Assessment Noted Time PHQ-9 Depression Total Score: 4 11/02/19 23 3:04 PM TRAY SERVER documented as of this encounter Care Teams Curb Builder Relationship Specialty Start Date End Date Alonzo Mendez MD [address] [place] [address] PCP - General 04/16/17 documented as of this encounter
--- OUTSIDE RECORDS SUMMARY | 2024-12-19 18:31 | XMS_ITS | Clinical Summary ---
Author Organization [facility] Address [address] [place] [address] Care Team Providers Care Photo Offset Printer Name Role Phone Alonzo Mendez MD Primary Care Provider Allergies Active Allergy Reactions Criticality Noted Date Comments Penicillins Itching,Unknown 12/24/2014 Medications mometasone furoate (ELOCON) 0.1 % creamIndications:P soriasis APPLY TO BOTH SHINS EVERY DAY 45 g 05/17/20 23 Active famotidine (PEPCID) 40 MG tabletIndications: Duodenal ulcer, chronic TAKE 1 TABLET(40 MG) BY MOUTH DAILY 90 tablet 3 07/26/20 23 Active QUEtiapine (SEROQUEL) 100 MG tablet Take 1 tablet (100 mg total) by mouth nightly at bedtime. 09/01/20 23 Active ondansetron (ZOFRAN) 4 MG tabletIndications: Non-intractable vomiting with nausea TAKE 1 TABLET(4 MG) BY MOUTH EVERY 8 HOURS NEEDED FOR NAUSEA 20 tablet 08/01/20 24 Active FLUoxetine (PROZAC) 20 MG capsule Take 1 capsule (20 mg total) by mouth daily. 07/27/20 24 Active pantoprazole EC (PROTONIX) 40 MG tabletIndications: Pharyngoesophageal dysphagia,Nausea TAKE 1 TABLET(40 MG) BY MOUTH DAILY 30 tablet 2 10/17/19 25 Active naproxen (NAPROSYN) 500 MG tabletIndications: Neck pain Take 1 tablet (500 mg total) by mouth 2 (two) times daily with meals. 10 tablet 10/31/19 25 Active traMADol (ULTRAM) 50 MG tabletIndications: Acute Pain < 3 Day Supply Take 1 tablet (50 mg total) by mouth every 6 (six) hours as needed for Pain. Indications: Acute Pain < 3 Day Supply 12 tablet 10/31/19 25 Active ALPRAZolam (XANAX) 1 MG tabletIndications: Anxiety disorder, unspecified type Take 1 tablet (1 mg total) by mouth 3 (three) times daily as needed for Anxiety. 90 tablet 11/22/19 25 025 Active ondansetron (ZOFRAN-ODT) 4 MG disintegrating tabletIndications: Nausea & vomiting Take 1 tablet (4 mg total) by mouth every 8 (eight) hours as needed for Nausea. 20 tablet 12/02/19 25 Active cyclobenzaprine (FLEXERIL) 5 MG tabletIndications: Muscle spasm Take 1 tablet (5 mg total) by mouth 3 (three) times daily as needed. FOR MUSCLE SPASMS 30 tablet 12/07/19 25 Active cyclobenzaprine (FLEXERIL) 5 MG tabletIndications: Muscle spasm Take 1 tablet (5 mg total) by mouth 3 (three) times daily as needed. FOR MUSCLE SPASMS 30 tablet 10/31/19 25 025 Discontinu ed(Reorder ) ALPRAZolam (XANAX) 1 MG tabletIndications: Anxiety disorder, unspecified type Take 1 tablet (1 mg total) by mouth 3 (three) times daily as needed for Sleep. 30 tablet 10/31/19 25 025 Discontinu ed(Reorder ) lidocaine (LIDODERM) 5 % Place 1 patch onto the skin daily for 30 days. 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 Sciatica 03/11/2017 GERD (gastroesophageal reflux disease) 6 Encounter for preventive health examination 01/25 Overview (08/27/2018): Transitioned From: Encounter for preventive health examination Anxiety disorder 12/24/2014 Depression 12/24/2014 IBS (irritable bowel syndrome) 12/24/2014 Resolved Problems Problem Noted Date Diagnosed Date Resolved Date Herpes zoster 06/28/2017 09/15/2018 Blood tests for routine gene ral physical examination 04/08/2016 06/07/2020 Encounters Date Type Department Care Team Description 12/11/2024 10:18 AM CDT - 12/11/2024 1:39 PM CDT Emergency [facility] [place] [address] Rose Rogers PA Vomiting Discharge Disposition: Home or Self Care (Routine Discharge) 12/11/2024 Travel 12/06/2024 Telephone [facility] [address] [phone] Alonzo Mendez MD Medication Request 12/04/2024 Telephone [facility] [address] [phone] Alonzo Mednez MD Other 12/01/[address] [phone] Alonzo Mendez MD Advice; Medication Request 11/22/[address] [phone] Alonzo Mendez MD Medication Request 11/21/2024 3:00 PM FLANGING ROLL OPERATOR Office Visit [facility] [address] [phone] Alonzo Mendez MD ER F/U ([facility] ER 11/18/24 f/u for fall. Patient was prescribed lidocaine patches, but this is not covered by insurance. Patient is wondering if the lotion will be covered. ); Anxiety (Patient has been unable to get alprazolam as prescribed because the pharmacy will only fill one tablet daily. Pharmacy is telling patient she is on a medication cocktail and they do not feel it's safe for patient to take. ) 11/21/2024 Scan [facility] Scanned, [facility] 11/21/2024 Travel 11/20/2024 Telephone [facility] [address] [phone] Alonzo Mendez MD Error 11/18/2024 5:25 AM FLANGING ROLL OPERATOR - 11/18/2024 8:01 AM FLANGING ROLL OPERATOR Emergency [facility] [place] [address] [place] [address] Charly Dyson, DO Fall Discharge Disposition: Home or Self Care (Routine Discharge) 11/18/2024 Travel 11/16/2024 [facility] Scanned, [facility] 11/11/2024 Scan [facility] Scanned, [facility] 10/31/2024 3:40 PM FLANGING ROLL OPERATOR Office Visit [facility] [address] [phone] Alonzo Mendez MD Follow Up; Anxiety; Depression; GERD; IBS; Headache (Patient c/o PEGUERO, she has been stretching her neck to try to help with her PEGUERO noting crepitation with movement.); Cough (Patient c/o barking cough x 1 month. ) 10/31/2024 Travel 10/26/2024 Telephone [facility] [address] [phone] Alonzo Mendez MD Orders from Last 3 Months Immunizations Name Administration Dates Next Due Tdap (Generic) 08/27/2014 Family History Medical History Relation Comments Cancer Father Diabetes Father [place] Father Cancer Mother bladder cancer, Lung Cancer Mother Stage 3 lung, ag e of onset 73 Cancer Other Cancer Paternal Grandfather Diabetes Paternal Grandfather Relation Status Comments Father Mother Other Paternal Grandfather Social History Tobacco Use Types Packs/Day Years Used Date Smoking Tobacco: Never Passive Smoke Exposure: Never Smokeless Tobacco: Never Tobacco Cessation:Counseling Given: Not Answered Alcohol Use Standard Drinks/Week Comments Not Currently 0 (1 standard drink = 0.6 oz pur e alcohol) AUDIT-C Answer Date Recorded Frequency of Alcohol Consumption Monthly or less 09/15/2018 Average Number of Drinks 1 or 2 018 Frequency of Binge Drinking Not on file 08/28 PHQ-2 Answer Date Recorded Patient Health Questionnaire-2 Score 1 11/01/2024 Comments No Sex and Gender Information Value Date Recorded Sex Assigned at Female 09/15/2018 3:11 PM FLANGING ROLL OPERATOR Legal Sex Female 3:51 PM CDT Gender Identity Female 09/15/2018 3:11 PM FLANGING ROLL OPERATOR Sexual Orientation Straight 09/15/2018 3: 11 PM FLANGING ROLL OPERATOR Last Filed Vital Signs Vital Sign Reading Time Taken Comments Blood Pressure 129/82 12/11/2024 1:22 PM CDT Pulse 80 12/11/2024 1:22 PM CDT Temperature 36.4 C (97.6 F) 12/11/2024 1:22 PM CDT Respiratory Rate 15 12/11/2024 1:22 PM CDT Oxygen Saturation 99% 12/11/2024 1:22 PM CDT Inhaled Oxygen Concentration - - Weight 68.5 kg (151 lb 0.2 oz) 12/11/2024 9:39 A M CDT Height 157.5 cm (5' 2 ) 12/11/2024 9:39 AM CDT Body Mass Index 27.62 12/11/2024 9:39 AM CDT Plan of Treatment Upcoming Encounters Date Type Department Care Team (Late st Contact Info) Description 12/22/2024 12:30 PM CDT Appointment [facility] [address] [place] [address] Alonzo Mendez MD [address] [place] [address] Health Maintenance Due Date Last Done Comments Cervical Cancer Screening Pa p Smear (Age 30 to 64) Every 3 Years 1963 Annual Physical 1966 Hepatitis C 1981 Cervical Cancer Screening Pa p with HPV Testing (Age 30 to 64) Every 5 Years 1993 Cervical Cancer Screening wi th HPV 1993 Mammogram Screening 2003 Zoster Vaccines (1 of 2) 2013 COVID-19 Vaccine (1 - 2023-2 5 season) 2024 Influenza Adult (#1) 2024 DTaP, Tdap and Td Vaccines ( 2 - Td or Tdap) 08/27/2024 08/27/2014 Colorectal Cancer Screening Colonoscopy (10 Years) 08/07/2034 08/07/2024, , RSV Immunization or 60+ Years (1 - 1-dose 75+ series) 2038 PHQ-2 (Physician [place]) Completed 11/01/2024 Meningococcal B Vaccine Aged Out No l onger eligible based on patient's age to complete this topic Meningococcal Vaccine Aged Out No asuncion cole eligible based on patient's age to complete this topic Pneumococcal Vaccine: Pediatrics (0 to 5 Years) and At-Risk Patients (6 to 64 Years) Aged Out No longer eligible b ased on patient's age to complete this topic RSV Immunizations Under 20 Months Aged Out No longer eligible b ased on patient's age to complete this topic Procedures Procedure Name Priority Date/Time Associated Diagnosis Comments CT ABD+PEL W CON STAT 12/11/2024 10:5 7 AM CDT HC URINALYSIS AUTO W/O MICRO STAT 12/11/2024 10:28 AM CDT LIPASE STAT 12/11/2024 10:27 AM CDT CBC W/DIFF AUTOMATED STAT 12/11/2024 10:27 AM CDT COMPREHENSIVE METABOLIC PANEL STAT 12/11/2024 10:[address] CERV SPINE WO CON STAT 11/18/2024 6:57 AM FLANGING ROLL OPERATOR CT HEAD WO CON STAT 11/18/2024 6:57 AM FLANGING ROLL OPERATOR XR HAND RT 3V STAT 11/18/2024 6:49 AM FLANGING ROLL OPERATOR COLONOSCOPY Routine FLANGING ROLL OPERATOR from Last 3 Months or Most Recently Relevant to Health Maintenance Results * CT ABD+PEL W IV CON ONLY (12/11/2024 10:57 AM CDT) Anatomical Region Laterality Modality Abdomen Computed Tomogra phy 12/11/2024 12:3 2 PM CDT Impressions 12/11/2024 12:58 PM CDT IMPRESSION: 1. Postoperative changes consistent with partial sigmoid colon resection. Mild to moderate stool from the cecum to proximal descending colon could be consistent with mild constipation. No acute bowel obstruction or focal inflammation. 2. No acute urinary tract obstruction or focal inflammation. No acute abnormality of the uterus, ovaries, and adnexa. 3. New L3 vertebral body superior right endplate Schmorl's node deformity since 04/20/2024 but likely chronic with no acute paravertebral stranding at this time. Ordered By: ROSE ROGERS Interpreted By: Juve Gaxiola, 12/11/2024 12:32 PM Narrative 12/11/2024 12:58 PM CDT [address] [address] IMAGING STUDIES: CT ABD+PEL W CON DATE: 12/11/2024 10:49 AM HISTORY: abdominal pain, vomiting 59-year-old female. Abdominal pain, nausea, and vomiting. Patient reports that she did have some constipation 2 days ago on Wednesday and then started noticing liquid stool with blood streaking that she could see. [place] that the pain got worse with vomiting since yesterday evening and early this morning. Concern for possible SBO as this feels similar in the past. Mild dysuria. Lower back pain associated with her abdominal pain. History of bowel obstruction secondary to scar tissue from recurrent diverticulitis. History also includes GERD, duodenal ulcer, and constipation. COMPARISON: Esophagram 08/14/2024. CT chest without contrast 07/28/2024. CT chest, abdomen, and pelvis with contrast 04/20/2024. DISCUSSION: CT abdomen and pelvis following intravenous administration 100 ml Isovue-370 contrast. Coronal and sagittal reconstructions. No enteric contrast. Automated exposure control with radiation dose reduction technique used. CHEST: No acute infiltrate or consolidation in the lung bases. 4 mm right lower lobe calcified granuloma. CARDIOVASCULAR: Heart size is normal. No pericardial effusion. No abdominal aortic aneurysm or dissection. No apparent acute arterial or venous abnormality. UPPER ABDOMEN: No acute abnormality of the liver, gallbladder, common bile duct, pancreas, spleen, and adrenal glands. Less conspicuous 3 mm hypodensity in the superior spleen (axial image 24 and coronal image 51) is currently 3 mm (4 mm on 04/20/2024) and remains most likely a benign cyst. GENITOURINARY: No renal mass or calcification. Normal renal enhancement with no perinephric stranding. No hydronephrosis or hydroureter. Mildly distended urinary bladder with no bladder wall thickening. No acute uterine, ovarian, or adnexal abnormality. LYMPHATIC: No pathologic adenopathy. GASTROINTESTINAL: Postoperative changes consistent with partial sigmoid colon resection. Mild diverticulosis in the remaining sigmoid colon. Mild to moderate stool from the cecum to the proximal descending colon. Minimal stool in the majority of the descending colon and sigmoid colon. No appendicitis. Mild fluid and air in the jejunum and ileum with no small bowel obstruction. Maximal small bowel distention of approximately 2.5 cm. No free fluid in the abdomen or pelvis. MUSCULOSKELETAL: Degenerative changes of the spine, pelvis, and hips. L3 superior right endplate Schmorl's node deformity resulting in less than 25% loss of vertebral body height is new since 04/20/2024 but is likely chronic with no acute paravertebral stranding. Procedure Note Juve Gaxiola MD - 12/11/[address] [id number] IMAGING STUDIES: CT ABD+PEL W CONDATE: 12/11/2024 10:49 AM HISTORY: abdominal pain, vomiting 59-year-old female. Abdominal pain,nausea, and vomiting. Patient reports that she did have some constipation2 days ago on Wednesday and then started noticing liquid stool with bloodstreaking that she could see. [place] that the pain got worse with vomitingsince yesterday evening and early this morning. Concern for possible SBOas this feels similar in the past. Mild dysuria. Lower back painassociated with her abdominal pain. History of bowel obstruction secondaryto scar tissue from recurrent diverticulitis. History also includes GERD,duodenal ulcer, and constipation. COMPARISON: Esophagram 08/14/2024. CT chest without contrast 07/28/2024.CT chest, abdomen, and pelvis with contrast 04/20/2024. DISCUSSION: CT abdomen and pelvis following intravenous administration 100 mlIsovue-370 contrast. Coronal and sagittal reconstructions. No entericcontrast. Automated exposure control with radiation dose reductiontechnique used. CHEST: No acute infiltrate or consolidation in the lung bases. 4 mm rightlower lobe calcified granuloma. CARDIOVASCULAR: Heart size is normal. No pericardial effusion. Noabdominal aortic aneurysm or dissection. No apparent acute arterial orvenous abnormality. UPPER ABDOMEN: No acute abnormality of the liver, gallbladder, common bileduct, pancreas, spleen, and adrenal glands. Less conspicuous 3 mmhypodensity in the superior spleen (axial image 24 and coronal image 51)is currently 3 mm (4 mm on 04/20/2024) and remains most likely a benigncyst. GENITOURINARY: No renal mass or calcification. Normal renal enhancementwith no perinephric stranding. No hydronephrosis or hydroureter. Mildlydistended urinary bladder with no bladder wall thickening. No acuteuterine, ovarian, or adnexal abnormality. LYMPHATIC: No pathologic adenopathy. GASTROINTESTINAL: Postoperative changes consistent with partial sigmoidcolon resection. Mild diverticulosis in the remaining sigmoid colon. Mildto moderate stool from the cecum to the proximal descending colon. Minimalstool in the majority of the descending colon and sigmoid colon. Noappendicitis. Mild fluid and air in the jejunum and ileum with no smallbowel obstruction. Maximal small bowel distention of approximately 2.5 cm.No free fluid in the abdomen or pelvis. MUSCULOSKELETAL: Degenerative changes of the spine, pelvis, and hips. F3ougavods right endplate Schmorl's node deformity resulting in less than25% loss of vertebral body height is new since 04/20/2024 but is likelychronic with no acute paravertebral stranding. IMPRESSION: 1. Postoperative changes consistent with partial sigmoid colon resection.Mild to moderate stool from the cecum to proximal descending colon couldbe consistent with mild constipation. No acute bowel obstruction or focalinflammation. 2. No acute urinary tract obstruction or focal inflammation. No acuteabnormality of the uterus, ovaries, and adnexa. 3. New L3 vertebral body superior right endplate Schmorl's node deformitysince 04/20/2024 but likely chronic with no acute paravertebral strandingat this time. Ordered By: ROSE ROGERS Interpreted By: Juve Gaxiola, 12/11/2024 12:32 PM us Rose Rogers [place] CT Final Result * URINALYSIS (12/11/2024 10:28 AM CDT) SPECIMEN TYPE URINE CLEAN CATCH 12/11/2024 10:28 AM CDT [facility] COLOR (U) COLORLESS 12/11/2024 10:47 AM CDT [facility] TRANSPARENCY CLEAR 12/11/2024 10:47 AM CDT [facility] SPECIFIC GRAVITY (U) 1.006 1.001 - 1.030 12/11/2024 10:47 AM CDT [facility] U PH 5.0 5.0 - 9.0 12/11/2024 10:47 AM CDT [facility] LEUKOCYTES (U) NEGATIVE NEGATIVE 12/11/2024 10:47 AM CDT [facility] NITRITES NEGATIVE NEGATIVE 12/11/2024 10:47 AM CDT [facility] PROTEIN RANDOM (U) NEGATIVE <30 MG/DL 12/11/2024 10:47 AM CDT [facility] GLUCOSE (U) NORMAL NORMAL MG/DL 12/11/2024 10:47 AM CDT [facility] KETONES MG/DL (U) NEGATIVE NEGATIVE MG/DL 12/11/2024 10:47 AM CDT [facility] UROBILINOGEN NORMAL NORMAL MG/DL 12/11/2024 10:47 AM CDT [facility] BILIRUBIN (U) NEGATIVE NEGATIVE MG/DL 12/11/2024 10:47 AM CDT [facility] BLOOD (U) NEGATIVE NEGATIVE 12/11/2024 10:47 AM CDT [facility] URINE SPECIMEN OBTAINED BY CLEAN CATCH PROCEDURE / Unknown 12/11/2024 10:28 AM CDT us Rose RODRIGUES URINE ORDERABLES Final Result [facility] [address] [place] [address], [place] [phone] * (ABNORMAL) COMPREHENSIVE METABOLIC PANEL (12/11/2024 10:27 AM CDT) GLUCOSE 90 70 - 99 MG/DL 12/11/2024 10:58 AM CDT [facility] BUN 16 7 - 18 MG/DL 12/11/2024 10:58 AM CDT [facility] CREATININE S/P/B 0.78 0.55 - 1.02 MG/DL 12/11/2024 10:58 AM CDT [facility] SODIUM S/P/B 137 136 - 145 MMOL/L 12/11/2024 10:58 AM CDT [facility] POTASSIUM S/P/B 4.4 3.5 - 5.1 MMOL/L 12/11/2024 10:58 AM CDT [facility] CHLORIDE S/P/B 108 97 - 115 MMOL/L 12/11/2024 10:58 AM CDT [facility] CO2 25.2 21 - 32 MMOL/L 12/11/2024 10:58 AM CDT [facility] CALCIUM S/P/B 9.2 8.5 - 10.1 MG/DL 12/11/2024 10:58 AM T [facility] BILIRUBIN TOTAL S/P/B 0.3 0.2 - 1.2 MG/DL 12/11/2024 10:58 AM CDT [facility] Comment: THIS ASSAY IS NOT RECOMMENDED FOR PATIENTS UNDERGOING TREATMENT WITH ELTROMBOPAG DUE TO THE POTENTIAL FOR FALSELY ELEVATED RESULTS. TOTAL PROTEIN S/P/B 7.2 6.4 - 8.2 G/DL 12/11/2024 10:58 AM CDT [facility] ALBUMIN S/P/B 3.9 3.4 - 5.0 G/DL 12/11/2024 10:58 AM T [facility] AST 21 15 - 37 U/L 12/11/2024 10:58 AM T [facility] ALT 28 14 - 55 U/L 12/11/2024 10:58 AM T [facility] ALKALINE PHOSPHATASE S/P/B 102 50 - 136 U/L 12/11/2024 10:58 AM [facility] ANION GAP 3.8 2 - 10 MMOL/L 12/11/2024 10:58 AM T [facility] BUN CREATININE RATIO 20.4 6 - 26 12/11/2024 10:58 AM T [facility] A/G RATIO 1.2 1.0 - 2.0 RATIO 12/11/2024 10:58 AM T [facility] GFR ESTIMATE 86(L) >90 ML/MIN/1.7 3 M2 12/11/2024 10:58 AM T [facility] Comment: NOTE: eGFR is not calculated for patients <18 years of age or gender unknown. This is an estimated GFR calculation using the new CKD EPI creatinine equation without race and so does not require a correction factor for race. This estimated GFR should not be used for calculating drug doses. 12/11/2024 10:2 7 AM CDT Rose RODRIGUES LABORAT[facility] Final Result [facility] [address] [place] [address], * (ABNORMAL) CBC W/DIFF AUTOMATED (12/11/2024 10:27 AM CDT) WBC 8.03 4.5 - 11.0 x10'3/uL 12/11/2024 10:39 AM CDT [facility] RBC 4.24 4.20 - 5.40 x10'6/uL 12/11/2024 10:39 AM CDT [facility] HGB 13.6 12.0 - 16.0 G/DL 12/11/2024 10:39 AM CDT [facility] HCT 41.5 38.0 - 48.0 % 12/11/2024 10:39 AM CDT [facility] MCV 97.9 81.0 - 99.0 FL 12/11/2024 10:39 AM CDT [facility] MCH 32.1(H) 27.0 - 31.0 PG 12/11/2024 10:39 AM CDT [facility] MCHC 32.8 32.0 - 36.0 G/DL 12/11/2024 10:39 AM CDT [facility] RDW 12.8 11.5 - 14.5 % 12/11/2024 10:39 AM CDT [facility] PLT 297 130 - 400 x10'3/uL 12/11/2024 10:39 AM CDT [facility] MPV 8.7(L) 9.3 - 12.2 FL 12/11/2024 10:39 AM CDT [facility] DIFFERENTIAL TYPE AUTOMATED DIFFERENTIAL 12/11/2024 10:39 AM T [facility] NEUTROPHILS % 74.3 % 12/11/2024 10:39 AM CDT [facility] LYMPHOCYTES % 16.2 % 12/11/2024 10:39 AM CDT [facility] MONOCYTES % 7.3 % 12/11/2024 10:39 AM CDT [facility] EOSINOPHILS 1.4 % 12/11/2024 10:39 AM T [facility] BASOPHILS 0.4 % 12/11/2024 10:39 AM CDT [facility] IMMATURE GRANS % 0.4 % 12/12/19 10:39 AM T [facility] ABS. NEUTROPHILS 5.97 1.80 - 7.70 x10'3/uL 12/11/2024 10:39 AM T [facility] ABS. LYMPHOCYTES 1.30 1.00 - 4.80 x10'3/uL 12/11/2024 10:39 AM T [facility] ABS. MONOCYTES 0.59 0.24 - 0.86 x10'3/uL 12/11/2024 10:39 AM T [facility] ABS. EOSINOPHILS 0.11 0.04 - 0.36 x10'3/uL 12/11/2024 10:39 AM T [facility] ABS. BASOPHILS 0.03 0.01 - 0.08 x10'3/uL 12/11/2024 10:39 AM T [facility] ABS. IMMATURE GRANULOCYTES 0.03 0.00 - 0.49 x10'3/uL 12/11/2024 10:39 AM T [facility] 12/11/2024 10:2 7 AM CDT Rose [facility]ODRIGUES [facility]ORAT[facility] Final Result [facility] [address] [place] [address], [place] [phone] * LIPASE (12/11/2024 10:27 AM CDT) LIPASE 32 13 - 75 UNITS/L 12/11/2024 10:58 AM CDT [facility] 12/11/2024 10:2 7 AM CDT Rose RODRIGUES [facility]ORAT[facility] Final Result Performing Organization Address City/[facility]/ZIP Co de Phone Number [facility] [address] [place] [id number], [place] [phone] * CT HEAD WO CON (11/18/2024 6:57 AM FLANGING ROLL OPERATOR) Anatomical Region Laterality Modality Head Computed Tomogra phy 11/18/2024 6:59 AM FLANGING ROLL OPERATOR Impressions 11/18/2024 7:03 AM FLANGING ROLL OPERATOR IMPRESSION: No acute intracranial abnormalities identified. Referred By: Interpreted By: Bruce Smith DO, 11/18/2024 6:59 AM Narrative 11/18/2024 7:03 AM FLANGING ROLL OPERATOR [address] [address] EXAMINATION: CT head without contrast HISTORY: Fall. Head pain. Head trauma. COMPARISON: CT head 04/20/2024. TECHNIQUE: Axial CT images of the head without the use of intravenous contrast. A dose lowering technique was used for this procedure, which may include, but is not limited to, dose reduction technique, automated exposure control, the use of degenerative reconstruction, and ALARA/image gently techniques. FINDINGS: No evidence of acute intracranial hemorrhage, edema, or mass effect. There is no midline shift. No evidence of subdural or epidural hematoma. The ventricular system is normally sized. There is no hydrocephalus. There are choroid plexus and pineal gland calcifications. No acute appearing orbital abnormalities. The paranasal sinuses are clear. The mastoid air cells are clear. No acute osseous abnormalities are identified. Procedure Note Bruce Smith DO - 11/18/2024 [facility] [place] [address] [place], [place] [address] EXAMINATION: CT head without contrast HISTORY: Fall. Head pain. Head trauma. COMPARISON: CT head 04/20/2024. TECHNIQUE: Axial CT images of the head without the use of intravenous contrast. A dose lowering technique was used for this procedure, which may include,but is not limited to, dose reduction technique, automated exposurecontrol, the use of degenerative reconstruction, and ALARA/image gentlytechniques. FINDINGS: No evidence of acute intracranial hemorrhage, edema, or mass effect.There is no midline shift. No evidence of subdural or epidural hematoma.The ventricular system is normally sized. There is no hydrocephalus.There are choroid plexus and pineal gland calcifications. No acuteappearing orbital abnormalities. The paranasal sinuses are clear. Themastoid air cells are clear. No acute osseous abnormalities areidentified. IMPRESSION: No acute intracranial abnormalities identified. Referred By: Interpreted By: Bruce Smith DO, 11/18/2024 6:59 AM Charly Dyson DO CT Final Result * CT CERV SPINE WO CON (11/18/2024 6:57 AM FLANGING ROLL OPERATOR) Anatomical Region Laterality Modality Spine Computed Tomogra phy 11/18/2024 7:03 AM FLANGING ROLL OPERATOR Impressions 11/18/2024 7:07 AM FLANGING ROLL OPERATOR IMPRESSION: 1. No acute osseous abnormalities identified. 2. Multilevel degenerative disc disease and facet arthropathy. Referred By: Interpreted By: Bruce Smith DO, 11/18/2024 7:03 AM Narrative 11/18/2024 7:07 AM FLANGING ROLL OPERATOR [address] [address] EXAMINATION: CT CERV SPINE WO CON HISTORY: Fall. Head trauma. Neck pain. COMPARISON: CT cervical spine 04/20/2024. TECHNIQUE: Axial CT images of the cervical spine without the use of intravenous contrast. Sagittal and coronal reformatted image sets. A dose lowering technique was used for this procedure, which may include, but is not limited to, dose reduction technique, automated exposure control, the use of degenerative reconstruction, and ALARA/image gently techniques. FINDINGS: The craniocervical junction and dens are intact. The lateral pillars remain aligned. No evidence of acute fracture or dislocation. No vertebral body height loss. The posterior elements remain aligned. There is multilevel degenerative disc disease and facet arthropathy throughout the cervical spine. No evidence of acute osseus impingement upon the spinal canal or neural foramina. There is grade 1 degenerative anterolisthesis of C4 on C5. No prevertebral soft tissue swelling. If the patient's symptoms persist or worsen over time, further evaluation with MRI would be recommended. No acute-appearing paraspinous soft tissue abnormalities. The partially included neck soft tissues are negative for acute appearing abnormality. The partially included lung apices are clear. Procedure Note Bruce Smith DO - 11/18/[address] [address] EXAMINATION: CT CERV SPINE WO CON HISTORY: Fall. Head trauma. Neck pain. COMPARISON: CT cervical spine 04/20/2024. TECHNIQUE: Axial CT images of the cervical spine without the use of intravenouscontrast. Sagittal and coronal reformatted image sets. A dose lowering technique was used for this procedure, which may include,but is not limited to, dose reduction technique, automated exposurecontrol, the use of degenerative reconstruction, and ALARA/image gentlytechniques. FINDINGS: The craniocervical junction and dens are intact. The lateral pillarsremain aligned. No evidence of acute fracture or dislocation. Novertebral body height loss. The posterior elements remain aligned. Thereis multilevel degenerative disc disease and facet arthropathy throughoutthe cervical spine. No evidence of acute osseus impingement upon thespinal canal or neural foramina. There is grade 1 degenerativeanterolisthesis of C4 on C5. No prevertebral soft tissue swelling. Ifthe patient's symptoms persist or worsen over time, further evaluationwith MRI would be recommended. No acute-appearing paraspinous soft tissueabnormalities. The partially included neck soft tissues are negative foracute appearing abnormality. The partially included lung apices areclear. IMPRESSION: 1. No acute osseous abnormalities identified. 2. Multilevel degenerative disc disease and facet arthropathy. Referred By: Interpreted By: Bruce Smith DO, 11/18/2024 7:03 AM Charly Dyson DO CT Final Result * XR HAND RT 3V (11/18/2024 6:49 AM FLANGING ROLL OPERATOR) Anatomical Region Laterality Modality Hand Radiographic Veena ging 11/18/2024 6:53 AM FLANGING ROLL OPERATOR Impressions 11/18/2024 6:55 AM FLANGING ROLL OPERATOR IMPRESSION: No acute osseous abnormalities identified. Referred By: Interpreted By: Bruce Smith DO, 11/18/2024 6:53 AM Narrative 11/18/2024 6:55 AM FLANGING ROLL OPERATOR [address] [address] EXAMINATION: XR HAND RT 3V HISTORY: Fall. Right hand pain. COMPARISON: None. TECHNIQUE: Multiple views of the right hand. FINDINGS: No visible acute fracture or dislocation. No evidence of osteolysis. No visible acute fracture or dislocation. No evidence of osteolysis. Alignment is maintained. There is right hand osteoarthritis. If the patient's symptoms persist or worsen over time, further evaluation with MRI would be recommended. Procedure Note Bruce Smith DO - 11/18/2024 [facility] [place] [address] [place], [place] [address] EXAMINATION: XR HAND RT 3V HISTORY: Fall. Right hand pain. COMPARISON: None. TECHNIQUE: Multiple views of the right hand. FINDINGS: No visible acute fracture or dislocation. No evidence of osteolysis. Novisible acute fracture or dislocation. No evidence of osteolysis.Alignment is maintained. There is right hand osteoarthritis. If thepatient's symptoms persist or worsen over time, further evaluation withMRI would be recommended. IMPRESSION: No acute osseous abnormalities identified. Referred By: Interpreted By: Bruce Smith DO, 11/18/2024 6:53 AM Charly Dyson DO GENERAL IMAGING Final Result * Colonoscopy ( FLANGING ROLL OPERATOR) Narrative [facility] TO EPIC CONVERSION - FLANGING ROLL OPERATOR Documented hx of procedure Procedure Note Ariel Verma MD - 07/31/2018 Documented hx of procedure us Generic Conversion Md VERMA GI PROCEDURE ORDERABLES Final Result [facility] TO EPIC CONVERSION from Last 3 Months or Most Recently Relevant to Health Maintenance Insurance MEDICAID [employer] Advance Directives Documents on File Type Date Recorded Patient Rn Advice Expl anation Advance Directives and Living Will 06/02/2018 12:38 PM 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
--- OUTSIDE RECORDS SUMMARY | 2024-12-19 18:31 | XMS_ITS | Encounter Summary ---
Author Organization [facility] Address 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
--- OUTSIDE RECORDS SUMMARY | 2024-12-19 18:31 | XMS_ITS | Clinical Summary ---
Author Organization [facility] Address [address] [place] [address] Care Team Providers Care Clothing Worker Name Role Phone Alonzo Mendez MD Primary Care Provider [phone] Source Comments [facility],non-owned Affiliates and Associated Physician Practices is amultiple site organization consisting of ambulatory clinics and hospital sitesin [place], [place], [place] and [place]. This disclosure is being madepursuant to the Care Everywhere program and may not contain all information available regarding this patient. Last updated 18.[facility] Social History Tobacco Use Types Packs/Day Years Used Date Smoking Tobacco: Never Assessed Sex and Gender Information Value Date Recorded Sex Assigned at Female 02/02/2022 2:38 PM CDT Gender Identity Female 02/02/2022 2:38 PM CDT Sexual Orientation Not on file Plan of Treatment Health Maintenance Due Date Last Done Comments COLOGUARD (AGES 45-75) - COL ON CA SCREENING 1963 COLON MONITORING 1963 COLONOSCOPY - COLON CA SCREENING 1963 CT COLONOGRAPHY - COLON CA SCREENING 1963 Colorectal Cancer Screening 1963 FIT - COLON CA SCREENING 1963 FLEX SIG - COLON CA SCREENING 1963 MAMMOGRAM 1963 PAP SMEAR 1963 HIV SCREENING 1978 HEPATITIS C SCREENING 03/19/1981 DTAP/TDAP/TD VACCINES (1 - Tdap) 1982 PNEUMOCOCCAL VACCINE 50+ (1 of 1 - PCV) 2013 ZOSTER VACCINE (1 of 2) 2013 COVID-19 VACCINE (1 - 2023-2 5 season) 2024 INFLUENZA VACCINE (#1) 2024 DEPRESSION SCREENING 09/27/2024 LIPID TESTING 01/06/2027 01/06/2022 Respiratory Syncytial Virus (RSV) Vaccine Pt: or over 60 yrs (1 - 1-dose 75+ series) 2038 HEPATITIS B VACCINE Aged Out No longe r eligible based on patient's age to complete this topic HIB VACCINE Aged Out No longer eligi ble based on patient's age to complete this topic HPV VACCINE Aged Out No longer eligi ble based on patient's age to complete this topic MENINGOCOCCAL (Group B) VACC INE SHARED DECISION-MAKING Aged Out No longer eligibl e based on patient's age to complete this topic MENINGOCOCCAL GROUPS A/C/Y/W VACCINE Aged Out No longer eligible b ased on patient's age to complete this topic PNEUMOCOCCAL VACCINE Aged Out No long er eligible based on patient's age to complete this topic Care Teams Clothing Worker Relationship Specialty Start Date End Date Alonzo Mendez MD [address] [place] [id number] PCP - General 01/26/22
--- OUTSIDE RECORDS SUMMARY | 2024-12-19 18:32 | XMS_ITS | CONTINUITY OF CARE DOCUMENT ---
Author Name marcelle ibanez Address Unknown Organization [facility] Address [address] [place] [address] [address] [place] [address] Phone [phone] Care Team Providers Care Lead Die Molder Name Role Phone Tu VERMA, Veronika Unavailable [phone] INSURANCE PROVIDERS Payer name Policy type / Coverage type [place] red constitution party [place] [employer] Medicaid 1 [id number]
--- OUTSIDE RECORDS SUMMARY | 2024-12-19 18:32 | XMS_ITS | CONTINUITY OF CARE DOCUMENT ---
Author Name marcelle ibanez Address Unknown Organization [facility] Address [address] [place] [address] [address] [place] [address] Phone [phone] Care Team Providers Care Pack Mule Worker Name Role Phone Tu VERMA, Veronika Unavailable INSURANCE PROVIDERS Payer name Policy type / Coverage type [place] red libertarian [place] [employer] FAMILY [employer] Medicaid 1 [id number]
== END 2024-12-19 17:00 | disposition home or self-care (01) ==
PROVIDERS: Emergency Provider Nurse Practitioner Family; PCP Internal Medicine
DX: R30.0 Dysuria (principal); Z87.891 Personal history of nicotine dependence; F12.90 Cannabis use, unspecified, uncomplicated; M19.90 Unspecified osteoarthritis, unspecified site; N80.9 Endometriosis, unspecified; F41.9 Anxiety disorder, unspecified; F41.0 Panic disorder [episodic paroxysmal anxiety]; F32.A Depression, unspecified; Z90.49 Acquired absence of other specified parts of digestive tract
CPT/HCPCS: 81003; 87077; 87086; 87186; 99213; G0463